=== PATIENT | male | born 1965 ===

== ENCOUNTER 2017-01-03 13:54 | Inpatient (IN) | payer OTHER, SELFPAY ==
[2017-01-03 14:00] VITALS: BMI 25.8
[2017-01-03] MEDS ORDERED: Alum-Mag Hydrox-Simethicone Susp (30 mL) PO STA (14:13)
[2017-01-03] MEDS ORDERED: Sodium Chloride 0.9% 1,000 ML IV STA (14:13)
[2017-01-03] MEDS ORDERED: Famotidine 20mg/50ml 20 MG/50 ML BAG IVPB STA (14:14)
--- NOTE | 2017-01-03 14:20 | ED PDOC ---
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 Patient states that pain began gradually, feels like a pressure sensation and radiates to straight back. Patient states that he has been vomiting throughout the morning. patient drinks on a daily basis about 8 shots. Today patient drank a few shots to help with the pain. Patient also took Aspirin 81 mg but vomited it up. Patient states pain is associated with difficulty catching his breath. Patient also complains of chronic lower extremity and low back pain. Patient denies having any hematemesis or hematochezia. Last drink was this morning. (Latasha Cardona) Past Medical History - Provider Review Nursing Documentation Reviewed: Yes - Travel History Have you recently traveled outside [place] w/in the past 3 mons?: No - Infectious Disease Hx of Infectious Diseases: None - Tetanus Immunization Tetanus Immunization: Unknown - Cardiac Hx Cardiac Disorders: No - Pulmonary Hx Respiratory Disorders: No - Neurological Hx Neurological Disorder: No - HEENT Hx HEENT Disorder: Yes Hx Cataracts: Yes (bilateral sx) - Renal Hx Renal Disorder: No - Endocrine/Metabolic Hx Endocrine Disorders: Yes Hx Diabetes Mellitus Type 2: Yes (niddm) - Hematological/Oncological Hx Blood Disorders: No - Integumentary Hx Dermatological Disorder: No - Musculoskeletal/Rheumatological Hx Musculoskeletal Disorders: No - Gastrointestinal Hx Gastrointestinal Disorders: No - Genitourinary/Gynecological Hx Genitourinary Disorders: Yes - Psychiatric Hx Psychophysiologic Disorder: No Hx Substance Use: No - Past Surgical History Past Surgical History: No Previous - Surgical History Hx Appendectomy: No Hx Cholecystectomy: No - Anesthesia Hx Anesthesia: No - Suicidal Assessment Feels Threatened In Home Enviroment: No <Latasha Cardona - Last Filed: 01/03/17 16:16> Family/Social History - Physician Review Nursing Documentation Reviewed: Yes Family/Social History: Unknown Family HX. denies: CAD/[place] Smoking Status: Never Smoked Hx Alcohol Use: Yes Frequency of alcohol use: Daily Hx Substance Use: No Hx Substance Use Treatment: No <Latasha Cardona - Last Filed: 01/03/17 16:16> Allergies/Home Meds <Latasha Cardona - Last Filed: 01/03/17 16:16> <LynettenathanMadyson Erendira - Last Filed: 01/03/17 17:43> Allergies/Adverse Reactions: Allergies No Known Allergies Allergy (Verified 01/03/17 14:00) Review of Systems - Review of Systems Constitutional: Normal. absent: Fatigue, Fevers Eyes: Normal. absent: Vision Changes, Photophobia ENT: Normal. absent: Sore Throat, Rhinorrhea, Sinus Congestion Respiratory: Normal. absent: SOB, Cough, Sputum, Wheezing Cardiovascular: Chest Pain. absent: Normal, Palpitations, Edema, Calf Pain, Syncope Gastrointestinal: Abdominal Pain, Nausea, Vomiting. absent: Normal, Constipation, Diarrhea, Hematochezia, Hematemesis Genitourinary Male: Normal. absent: Dysuria, Frequency Musculoskeletal: Back Pain (chronic). absent: Arthralgias Skin: Normal. absent: Rash, Pruritis, Skin Lesions, Laceration Neurological: Normal. absent: Headache, Dizziness Endocrine: Normal. absent: Diaphoresis, Polyuria Hemo/Lymphatic: Normal. absent: Adenopathy, Easy Bleeding Psychiatric: Normal. absent: Anxiety, Depression <Latasha Cardona - Last Filed: 01/03/17 16:16> Physical Exam Vital Signs Reviewed: Yes Temperature: Afebrile Blood Pressure: Normal Pulse: Tachycardic Respiratory Rate: Normal Appearance: Positive for: Uncomfortable Pain Distress: Moderate Mental Status: Positive for: Alert and Oriented X 3 - Systems Exam Head: Present: Atraumatic, Normocephalic Extroacular Muscles: Present: EOMI Mouth: Present: Moist Mucous Membranes Neck: Present: Normal Range of Motion Respiratory/Chest: Present: Clear to Auscultation, Good Air Exchange. No: Respiratory Distress, Accessory Muscle Use, Wheezes, Rales, Rhonchi Cardiovascular: Present: Normal S1, S2, Tachycardic. No: Murmurs, Irregular Rhythm, Rub, Gallop, Muffled Abdomen: Present: Tenderness, Normal Bowel Sounds, Guarding. No: Distention, Peritoneal Signs, Rebound Lower Extremity: Present: Normal ROM, Neurovascularly Intact. No: Normal Inspection, Edema, CALF TENDERNESS, NORMAL PULSES, Vidya's Sign, Tenderness Neurological: Present: GCS=15, Speech Normal. No: CN II-XII Intact Skin: Present: Warm, Dry, Normal Color. No: Rashes Psychiatric: Present: Alert, Oriented x 3, Normal Insight, Normal Concentration , Other (no tremors noted ). No: Anxious, Agitated <Karim,Latasha - Last Filed: 01/03/17 16:16> Medical Decision Making - Lab Interpretations I have reviewed the lab results: Yes - RAD Interpretation Yard Pilot: ED Physician - EKG Interpretation Type: 12 lead EKG <Amn Brendana - Last Filed: 01/03/17 16:16> <Madyson Carrasco - Last Filed: 01/03/17 17:43> ED Course and Treatment: 01/03/17 14:25 51 year old male presents for left sided chest pain radiating to back. Blood sugar finger stick is 153. Patient is noted to have normal Stress test in 2013 Will check CBC, CMP, lipase, cardiac enzymes, EKG, CXR, Mg, phos, UDS and serum alcohol level Patient will be given pepcid, zofran, NS 1 L bolus, Maalox (Karim,Latasha) 01/03/17 17:41 Patient seen by resident and then evaluated by me. He complained of chest pain associated with abdominal pain and vomiting. Dry mucus membranes and tachycardic on arrival which resolved after IVF. Labs significant for elevated liver function and mildly elevated inr. Tylenol level negative. Hepatitis panel sent out. Trop x 1 negative. Due to cardiac risk factors, with transfer to tele observation for chest pain, liver failure (etoh vs viral hepatitis) and alcohol abuse. Spoke to Dr. Steven who is aware of patient. (Madyson Carrasco) - Lab Interpretations Narrative Lab Interpretation (Text): 01/03/17 15:17 CBC is grossly normal CMP: T bili is 2.2 ALT is 1160 AST 1591 Alk is 137 LDH is 3122 Serum ETOH level is 228 01/03/17 16:04 (Karim,Latasha) Lab Results: 01/03/17 14:15 01/03/17 14:15 Lab Results 01/03/17 16:00: Urine Opiates Screen Negative, Urine Methadone Screen Negative, Ur Barbiturates Screen Negative, Ur Phencyclidine Scrn Negative, Ur Amphetamines Screen Negative, U Benzodiazepines Scrn Negative, U Oth Cocaine Metabols Negative, U Cannabinoids Screen Negative 01/03/17 14:21: POC Glucose (mg/dL) 153 H 01/03/17 14:15: Direct Bilirubin 0.9 H 01/03/17 14:15: Acetaminophen < 10.0 L 01/03/17 14:15: PT 16.1 H, INR 1.49 H, APTT 34.4 H 01/03/17 14:15: Alcohol, Quantitative 228 H 01/03/17 14:15: Sodium 133, Potassium 3.6, Chloride 93 L, Carbon Dioxide 25, Anion Gap 19, BUN 14, Creatinine 0.6, Est GFR ( Amer) > 60, Est GFR (Non- Af Amer) > 60, Random Glucose 159 H, Calcium 8.4, Phosphorus 2.3 L, Magnesium 1.3 L, Total Bilirubin 2.2 H, AST 1591 H, ALT 1160 H, Alkaline Phosphatase 137 H , Lactate Dehydrogenase 3122 H, Total Creatine Kinase 379 H, CK-MB (CK-2) 5.3 H , CK-MB (CK-2) % 1.4 L, Troponin I < 0.01, Total Protein 7.9, Albumin 4.3, Globulin 3.5, Albumin/Globulin Ratio 1.2, Lipase 141 01/03/17 14:15: WBC 4.6 D, RBC 4.83, Hgb 15.1, Hct 42.2, MCV 87.4, MCH 31.3, MCHC 35.8, RDW 14.8 H, Plt Count 305, MPV 9.5 - RAD Interpretation Narrative RAD Interpretations (Text): 01/03/17 16:17 CXR: interval change consisting of mild central pulmonary venous congestion, 6 mm left lateral mid lung zone stable from appearance since 2014 (Amn Brendana) Radiology Orders: 01/03/17 15:07 CHEST PORTABLE [RAD] Stat 01/03/17 15:22 ABD & PELVIS IV CONTRAST ONLY [CT] Stat - EKG Interpretation EKG Interpretation (Text): 01/03/17 14:31 NSR with HR of 108. No ST changes, normal intervals, normal axis. (Latasha Cardona ) - Medication Orders Current Medication Orders: Discontinued Medications Al Hydrox/Mg Hydrox/Simethicone (Maalox Plus 30 Ml) 30 ml PO STAT STA Stop: 01/03/17 14:14 Last Admin: 01/03/17 15:00 Dose: 30 ml Aspirin (Ecotrin) 243 mg PO STAT STA Stop: 01/03/17 15:28 Sodium Chloride (Sodium Chloride 0.9%) 1,000 mls @ 999 mls/hr IV .Q1H1M STA Stop: 01/03/17 15:13 Last Admin: 01/03/17 14:28 Dose: 999 mls/hr Famotidine (Pepcid 20mg/50ml Premix) 20 mg in 50 mls @ 100 mls/hr IVPB STAT STA Stop: 01/03/17 14:43 Last Admin: 01/03/17 14:29 Dose: 100 mls/hr Iohexol (Omnipaque 350 100 Ml) Confirm Administered Dose 350 mg .ROUTE .STK-MED ONE Stop: 01/03/17 15:43 Ondansetron HCl (Zofran Inj) 4 mg IVP STAT STA Stop: 01/03/17 14:12 Last Admin: 01/03/17 14:29 Dose: 4 mg Disposition/Present on Arrival - Present on Arrival Any Indicators Present on Arrival: No History of DVT/PE: No History of Uncontrolled Diabetes: No Urinary Catheter: No History of Decub. Ulcer: No History Surgical Site Infection Following: None - Disposition Have Diagnosis and Disposition been Completed?: Yes Patient Plan: Admission <BrendanLatasha - Last Filed: 01/03/17 16:16> - Present on Arrival Any Indicators Present on Arrival: No - Disposition Have Diagnosis and Disposition been Completed?: Yes Disposition Time: 17:43 Patient Plan: Admission <Madyson Carrasco - Last Filed: 01/03/17 17:43> - Disposition Diagnosis: Abdominal pain, Acute hepatic failure Disposition: HOSPITALIZED Patient Problems: Current Active Problems Problem Status Onset Abdominal pain Acute Acute hepatic failure Acute Condition: FAIR
[2017-01-03 14:47] LABS: HEMOGLOBIN 15.1 g/dL (14.0-18.0); MEAN CELL VOLUME 87.4 fl (80.0-105.0); MEAN CORPUSCULAR HEMOGLOBIN 31.3 pg (25.0-35.0); MEAN CORPUSCULAR HGB CONC 35.8 g/dl (31.0-37.0); MEAN PLATELET VOLUME 9.5 fl (7.0-11.0); RBC 4.83 10^6/uL (3.5-6.1); RED CELL DISTRIBUTION WIDTH 14.8 % (11.5-14.5); WHITE BLOOD COUNT 4.6 10^3/ul (4.5-11.0)
[2017-01-03 14:58] LABS: ALB/GLOB RATIO 1.2 (1.1-1.8); ALBUMIN 4.3 g/dL (3.0-4.8); BLOOD UREA NITROGEN 14 mg/dL (7-21); CALCIUM 8.4 mg/dL (8.4-10.5); GFR AFRICAN-AMERICAN > 60; GFR NON-AFRICAN AMERICAN > 60; LIPASE 141 U/L (23-300); MAGNESIUM 1.3 mg/dL (1.7-2.2)
[2017-01-03 15:08] LABS: ALT/SGPT 1160 U/L (7-56)
[2017-01-03 15:09] LABS: TROPONIN I < 0.01 ng/mL
[2017-01-03 15:15] LABS: CK MB% 1.4 % (2.5-3.0); CK-MB 5.3 ng/mL (0.0-3.6)
[2017-01-03] MEDS ORDERED: Aspirin 325 mg EC Tablets PO STA ×2 (15:20→15:27)
[2017-01-03 15:25] LABS: AST/SGOT 1591 U/L (15-59)
--- NOTE | 2017-01-03 15:35 | RAD ---
HISTORY: chest pain COMPARISON: 08/03/2014 FINDINGS: LUNGS: No consolidation. The central and infrahilar bronchovascular markings are slightly more prominent on this volume study. Mild central pulmonary venous congestion is believe most likely. No talia consolidation noted A 6 mm nodule projects over the lateral left mid lung zone bordering the left 6 superior rib cortex. This is unchanged since 2014 . PLEURA: No significant pleural effusion identified, no pneumothorax apparent. CARDIOVASCULAR: Probable top-normal OSSEOUS STRUCTURES: No significant abnormalities. VISUALIZED UPPER ABDOMEN: Normal. OTHER FINDINGS: None. IMPRESSION: Interval change consisting of - Mild central pulmonary venous congestion. Top-normal heart size 6 mm nodule left lateral mid lung zone -stable in appearance since 2014
[2017-01-03] MEDS ORDERED: Iohexol 350 MG/100 ML VIAL ONE (15:42)
[2017-01-03 16:30] LABS: INR 1.49 (0.93-1.08); PARTIAL THROMBOPLASTIN TIME 34.4 Seconds (23.7-30.8); PROTHROMBIN TIME 16.1 Seconds (9.9-11.8)
[2017-01-03 16:38] LABS: BARBITURATES, UR NEGATIVE (NEGATIVE); BENZODIAZEPINES, UR NEGATIVE (NEGATIVE); OPIATES, UR NEGATIVE (NEGATIVE); PHENCYCLIDINE, UR NEGATIVE (NEGATIVE)
--- NOTE | 2017-01-03 17:23 | CT ---
PROCEDURE: CT Abdomen and Pelvis with contrast HISTORY: Generalized abdominal pain, chest pain. COMPARISON: 01/30/2015. TECHNIQUE: Contrast dose: 100 cc Omnipaque 350. Radiation dose: Total exam DLP = 445.61 mGy-cm. This CT exam was performed using one or more of the following dose reduction techniques: Automated exposure control, adjustment of the mA and/or kV according to patient size, and/or use of iterative reconstruction technique. FINDINGS: LOWER THORAX: Unremarkable. LIVER: Unremarkable. No gross lesion or ductal dilatation. GALLBLADDER AND BILE DUCTS: Unremarkable. PANCREAS: Unremarkable. No gross lesion or ductal dilatation. SPLEEN: Unremarkable. ADRENALS: Unremarkable. No mass. KIDNEYS AND URETERS: Unremarkable. No hydronephrosis. No solid mass. VASCULATURE: Unremarkable. No aortic aneurysm. BOWEL: Mild thickening of the wall of the colon. The findings likely reflect underfilling. However colitis should also be considered in the appropriate clinical setting. There is evidence of diverticulosis without diverticulitis. APPENDIX: Normal appendix. PERITONEUM: Unremarkable. No free fluid. No free air. LYMPH NODES: Unremarkable. No enlarged lymph nodes. BLADDER: Unremarkable. REPRODUCTIVE: Unremarkable. BONES: No acute fracture. OTHER FINDINGS: None. IMPRESSION: Thickening of the wall of the entire colon. The colon is not distended and oral contrast was not administered. Diffuse colitis however could also assume this appearance.
--- NOTE | 2017-01-03 18:28 | CARD ---
APPROVED REPORT EKG Measurement Heart [id number] <Conclusion> Sinus tachycardia Possible Left atrial enlargement Borderline ECG
[2017-01-03] MEDS ORDERED: Potassium Phosphate 15 MMOLE in Sodium Chloride 0.9% 250 ML IVPB ONE (21:34)
[2017-01-03] MEDS ORDERED: Thiamine 100 mg/ml Inj IV ONE (21:38)
[2017-01-03] MEDS: Magnesium Sulfate 2 GM in Sodium Chloride 0.9% 100 ML IVPB SCH (22:05)
--- NOTE | 2017-01-03 22:20 | CP.PCM.HP ---
<rCistian Winters - Last Filed: 01/04/17 05:41> History of Present Illness - History of Present Illness History of Present Illness: IM H&P for Hospitalist service CC: worsening nausea/emesis, and left-sided chest pain HPI: This is a 51 yo M with PMH of HTN, DM, medication non-compliance , and chronic alcohol abuse who presented to the ED with complaint of increased emesis and abd/chest pain. Patient is Pashto-speaking only, so translation provided by staff at bedside. Patient is a poor historian; his story changes frequently and he is frequently unable or unwilling to provide further history. He reports that he presented today due to increased abdominal pain and emesis , up to 6 times today. He admits to regular alcohol use, but the daily amount that he admits to varies, anywhere from 6 to > 8 drinks per day, shots of unspecified liquor. Patient reports drink this amount since emigrating to the [place], for ~17 yrs. He reports daily emesis for the last 3 days prior to presentation, but reports that it is a common occurrence for him. He denies bilious or bloody emesis during these most recent episodes, but admits that he has had hematemesis with bouts of emesis while drinking previously. Abdominal pain is described as diffuse, most prominent at epigastric area. Patient denies tobacco or illicits/IVDA use. Admits to sexual activity, frequently with prostitutes, claims to be using protection, denies any hx of STDs. Poor appetite, vomiting up food and baby aspirin on day of admission, reports last PO food intake 4 days prior, no BM in the last 3 days. Admits to intermittent chest pain/pressure, which was one of his main complaints in the ED, but denies chest pain or pressure at time of exam by admitting team. Denies shortness of breath, dyspnea, cough, fever/chills, dry heaves, worsening abdominal/flank pain with urination, dysuria/hematuria, diarrhea, focal weakness, LE edema, or LE paresthesias. All other ROS negative in 12-point systems review. Of note, patient reports that he usually goes to [facility] to be seen, but came to [facility] because he lives closer to here and did not think he could make it to [facility] due to his pain. Will need to obtain a copy of his records from [facility] He also reports that he was previously placed on medications for his DM and HTN (5 in total, including ASA, statin, Metformin, and insulin), but hasn't been on any in 2+ month due to running out of what he was prescribed and not following up with physicians as an outpatient. 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, claims to be using protection, denies any MSM, denies any hx STDs PMD: None Present on Admission - Present on Admission Any Indicators Present on Admission: No History of DVT/PE: No History of Uncontrolled Diabetes: No Decubitus Ulcer Present: No Review of Systems - Review of Systems All systems: reviewed and no additional remarkable complaints except (as per HPI ) Past Patient History - Infectious Disease Hx of Infectious Diseases: None - Tetanus Immunizations Tetanus Immunization: Unknown - Past Social History Smoking Status: Never Smoked - CARDIAC Hx Cardiac Disorders: Yes Hx Hypercholesterolemia: Yes Hx Hypertension: Yes - PULMONARY Hx Respiratory Disorders: No - NEUROLOGICAL Hx Neurological Disorder: No - HEENT Hx HEENT Problems: Yes Hx Cataracts: Yes (bilateral sx) - RENAL Hx Chronic Kidney Disease: No - ENDOCRINE/METABOLIC Hx Endocrine Disorders: Yes Hx Diabetes Mellitus Type 2: Yes (niddm) - HEMATOLOGICAL/ONCOLOGICAL Hx Blood Disorders: No - INTEGUMENTARY Hx Dermatological Problems: No - MUSCULOSKELETAL/RHEUMATOLOGICAL Hx Falls: Yes - GASTROINTESTINAL Hx Gastrointestinal Disorders: No - GENITOURINARY/GYNECOLOGICAL Hx Genitourinary Disorders: Yes Hx Prostate Problems: Yes - PSYCHIATRIC Hx Psychophysiologic Disorder: Yes (eoh abuse) Hx Substance Use: No - SURGICAL HISTORY Hx Appendectomy: No Hx Cholecystectomy: No - ANESTHESIA Hx Anesthesia: No Meds Allergies/Adverse Reactions: Allergies Allergy/AdvReac Type Severity Reaction Status Date / Time No Known Allergies Allergy Verified 01/03/17 14:00 Physical Exam - Constitutional Appears: Non-toxic, No Acute Distress, Chronically Ill - Head Exam Head Exam: ATRAUMATIC, NORMAL INSPECTION, NORMOCEPHALIC - Eye Exam Eye Exam: EOMI, Normal appearance, PERRL. absent: Conjunctival injection, Nystagmus, Scleral icterus Pupil Exam: NORMAL ACCOMODATION, PERRL. absent: Fixed, Irregular, Unequal - ENT Exam ENT Exam: Mucous Membranes Dry. absent: Mucous Membranes Moist - Neck Exam Neck exam: Positive for: Full Rom. Negative for: Lymphadenopathy - Respiratory Exam Respiratory Exam: Clear to Auscultation Bilateral, NORMAL BREATHING PATTERN. absent: Accessory Muscle Use, Chest Wall Tenderness, Decreased Breath Sounds, Rales, Rhonchi, Wheezes - Cardiovascular Exam Cardiovascular Exam: REGULAR RHYTHM, RRR, +S1, +S2. absent: Bradycardia, Tachycardia, Clicks, Irregular Rhythm, JVD, +S4 - GI/Abdominal Exam GI & Abdominal Exam: Hyperactive Bowel Sounds (with frequent borborygmi), Soft, Tenderness (predominantly epigastric, but diffusely present). absent: Diminished Bowel Sounds, Distended, Firm, Hypoactive Bowel Sounds, Normal Bowel Sounds, Organomegaly (palpable liver, but not grossly enlarged), Rebound, Rigid - Extremities Exam Extremities exam: Positive for: normal inspection, pedal pulses present (+1 dorsalis pedis bilaterally). Negative for: calf tenderness, joint swelling, pedal edema, tenderness - Back Exam Back exam: absent: CVA tenderness (L), CVA tenderness (R) - Neurological Exam Additional comments: awake and alert, following commands appropriately, moving all extremities spontaneously, no gross tremulousness, no asterixis noted - Psychiatric Exam Additional comments: Flat affect/mood, extremely poor insight into condition and issues related to alcohol intake - Skin Skin Exam: Dry, Intact, Normal Color, Warm Results - Vital Signs Recent Vital Signs: Last Vital Signs Temp 98.0 F 01/03/17 14:11 Pulse 76 01/03/17 20:39 Resp 20 01/03/17 20:39 BP 112/77 01/03/17 18:11 Pulse Ox 99 01/03/17 18:11 - Labs Result Diagrams: 01/04/17 04:10 01/03/17 14:15 Assessment & Plan - Assessment and Plan (Free Text) Assessment: This is a 51 yo M with PMH of HTN, DM, medication non-compliance, and chronic alcohol abuse who presented to the ED with complaint of increased emesis and abd/chest pain. He is being worked up for acute hepatic failure, likely 2/2 alcohol abuse. Plan: 1) Abdominal pain with nausea and emesis -2/2 alcohol abuse vs chronic pancreatitis vs hepatic failure vs enteritis, may be multifactorial -EtOH level in ED 228 -Lipase 141, but given chronic alcohol abuse and chronic abdominal pain with emesis, more likely chronic pancreatitis picture, which can present with nml range lipase -AST 1591, ALT 1160, Alk phos 137, Tbili 2.2, Dbili 0.9, PT 16.1, PTT 34.4, INR 1.49; prior charting for this patient notable for AST/ALT all < 100, Tbili < 1.0 , INRmax 1.05; concerning for acute renal failure, likely 2/2 alcohol abuse, need to rule out 2/2 viral etiology given sexual hx -Hepatitis panel, HIV, RPR, UTox ordered -Hypertriglyceridemia at 509, likely 2/2 alcohol abuse -GI consulted, appreciate all recs -NS with 20 meq KCl at 150cc/hr, NPO overnight for bowel rest, can trial on clears in AM -CT abd/pelvis obtained, notable for Thickening of the wall of the entire colon , not distended, Diffuse colitis could also assume this appearance. -repleting electrolytes; Mag 1.3, ordered 2g IVPB q3 x3 doses; K 3.6, 20 mEq KCl per bag NS ordered; Phos 2.3, KPhos x1 ordered; f/u repeats on AM labs -Protonix 40mg IVP q12, Zofran 4mg q6 IVP prn 2) Acute hepatic failure -likely 2/2 alcohol abuse, ruling out viral causes, rule out autoimmune -AST 1591, ALT 1160, Alk phos 137, Tbili 2.2, Dbili 0.9, PT 16.1, PTT 34.4, INR 1.49; prior charting for this patient notable for AST/ALT all < 100, Tbili < 1.0 , INRmax 1.05 -Hepatitis panel pending, UTox pending, Smooth muscle antibody pending -Maddrey Score: 22, would not benefit from steroid therapy -GI consulted, appreciate all recs -avoid hepatotoxic drugs where feasible -Ammonia level ordered; currently mentating appropriately, so unlikely uremic at this time; if becomes obtunded/encephalopathic, consider 3) EtOH abuse -EtOH lvl in ED 228 -high risk for withdrawal -CIWA protocol ordered -Ativan IV 1mg q6 romy and 2mg q2 prn ordered -IV Folic acid 1mg and Thiamine 100mg IV x1 each; PO folic acid and thiamine daily ordered 4) Chest pain -initial compliant in the ED was chest pain, denies chest pain at time of exam by admitting team -initial trop negative, EKG sinus rhythm with QTc prolongation of 480's -given ASA 243 x1 in ED -continue to monitor, if chest pain symptoms recur or develops arrhythmia, can consider consulting Cardio -on tele floor, continue tele monitoring 5) HTN -reports previous on 1-2 antiHTN meds, but no recollection of what meds; off for > 2 months -currently Hemodynamically stable, will hold off on antiHTN medications as this time 6) DM -reports previously on insulin and metformin, doses unclear, not taking for > 2 months -Blood Glucose 150's on admission -NPO overnight, will start on clear liquids mod consistent carb -holding insulin for now, if becomes hyperglycemic > 200, can consider starting on sliding scale Dispo: Telemetry for acute hepatic failure, pending GI eval and input, on CIWA protocol for likely pending EtOH withdrawal FEN: NPO overnight, clears in AM, NS 150 cc/hr + 20 mEq KCl Access: Peripheral IV Consults: GI Ppx: Protonix covers for GI, SCDs for DVT (avoid AC in setting of acute hepatic failure with elevated INR) Pt seen and examined with attending, Dr. Krause. Decision To Admit - Pt Status Changed To: Hospital Disposition Of: Inpatient Admission - Admit Certification Admit to Inpatient:: After my assessment, the patient will require hospitalization for at least two midnights. This is because of the severity of symptoms shown, intensity of services needed, and/or the medical risk in this patient being treated as an outpatient. - . Bed Request Type: Telemetry <Salazar Krause - Last Filed: 01/04/17 23:13> Results - Vital Signs Recent Vital Signs: Last Vital Signs Temp 98.7 F 01/04/17 17:47 Pulse 79 01/04/17 17:47 Resp 18 01/04/17 17:47 BP 117/79 01/04/17 17:47 Pulse Ox 97 01/04/17 06:00 - Labs Result Diagrams: 01/04/17 04:10 01/04/17 04:10 Labs: Laboratory Results - last 24 hr 01/03/17 01/04/17 01/04/17 17:55 04:10 04:10 WBC 4.1 L RBC 4.36 Hgb 13.5 L Hct 38.6 L MCV 88.5 MCH 31.0 MCHC 35.0 RDW 15.0 H Plt Count 244 MPV 9.4 Gran % 83.9 H Lymph % (Auto) 11.3 L [place] % (Auto) 3.4 Eos % (Auto) 1.2 L Baso % (Auto) 0.2 Gran # 3.41 Lymph # 0.5 L [place] # 0.1 Eos # 0.1 Baso # 0.01 PT 12.8 H INR 1.19 H APTT 35.0 H Sodium Potassium Chloride Carbon Dioxide Anion Gap BUN Creatinine Est GFR ( Amer) Est GFR (Non-Af Amer) POC Glucose (mg/dL) Random Glucose Hemoglobin A1c Lactic Acid Calcium Phosphorus Magnesium Total Bilirubin AST ALT Alkaline Phosphatase Ammonia Troponin I Total Protein Albumin Globulin Albumin/Globulin Ratio Triglycerides Cholesterol LDL Cholesterol Direct HDL Cholesterol Vitamin B12 25-OH Vitamin D Total RPR Hepatitis A IgM Ab Negative Hep Bs Antigen Negative Hep B Core IgM Ab Negative Hepatitis C Antibody Negative 01/04/17 01/04/17 01/04/17 04:10 04:10 04:10 WBC RBC Hgb Hct MCV MCH MCHC RDW Plt Count MPV Gran % Lymph % (Auto) [place] % (Auto) Eos % (Auto) Baso % (Auto) Gran # Lymph # [place] # Eos # Baso # PT INR APTT Sodium 133 Potassium 3.6 Chloride 99 Carbon Dioxide 25 Anion Gap 13 BUN 7 Creatinine 0.6 Est GFR ( Amer) > 60 Est GFR (Non-Af Amer) > 60 POC Glucose (mg/dL) Random Glucose 150 H Hemoglobin A1c 7.7 H Lactic Acid Calcium 7.3 L Phosphorus 3.0 Magnesium 2.2 Total Bilirubin 1.6 H AST 1259 H ALT 949 H Alkaline Phosphatase 131 Ammonia Troponin I < 0.01 Total Protein 6.8 Albumin 3.5 Globulin 3.3 Albumin/Globulin Ratio 1.1 Triglycerides 509 H Cholesterol 170 LDL Cholesterol Direct 34 HDL Cholesterol 59 Vitamin B12 971 H 25-OH Vitamin D Total < 12.8 L RPR Hepatitis A IgM Ab Hep Bs Antigen Hep B Core IgM Ab Hepatitis C Antibody 01/04/17 01/04/17 01/04/17 04:10 04:10 07:26 WBC RBC Hgb Hct MCV MCH MCHC RDW Plt Count MPV Gran % Lymph % (Auto) [place] % (Auto) Eos % (Auto) Baso % (Auto) Gran # Lymph # [place] # Eos # Baso # PT INR APTT Sodium Potassium Chloride Carbon Dioxide Anion Gap BUN Creatinine Est GFR ( Amer) Est GFR (Non-Af Amer) POC Glucose (mg/dL) 123 H Random Glucose Hemoglobin A1c Lactic Acid 1.0 Calcium Phosphorus Magnesium Total Bilirubin AST ALT Alkaline Phosphatase Ammonia Troponin I Total Protein Albumin Globulin Albumin/Globulin Ratio Triglycerides Cholesterol LDL Cholesterol Direct HDL Cholesterol Vitamin B12 25-OH Vitamin D Total RPR Nonreactive Hepatitis A IgM Ab Hep Bs Antigen Hep B Core IgM Ab Hepatitis C Antibody 01/04/17 01/04/17 01/04/17 08:20 12:01 16:00 WBC RBC Hgb Hct MCV MCH MCHC RDW Plt Count MPV Gran % Lymph % (Auto) [place] % (Auto) Eos % (Auto) Baso % (Auto) Gran # Lymph # [place] # Eos # Baso # PT INR APTT Sodium Potassium Chloride Carbon Dioxide Anion Gap BUN Creatinine Est GFR ( Amer) Est GFR (Non-Af Amer) POC Glucose (mg/dL) 212 H 196 H Random Glucose Hemoglobin A1c Lactic Acid Calcium Phosphorus Magnesium Total Bilirubin AST ALT Alkaline Phosphatase Ammonia 35 H Troponin I Total Protein Albumin Globulin Albumin/Globulin Ratio Triglycerides Cholesterol LDL Cholesterol Direct HDL Cholesterol Vitamin B12 25-OH Vitamin D Total RPR Hepatitis A IgM Ab Hep Bs Antigen Hep B Core IgM Ab Hepatitis C Antibody 01/04/17 21:43 WBC RBC Hgb Hct MCV MCH MCHC RDW Plt Count MPV Gran % Lymph % (Auto) [place] % (Auto) Eos % (Auto) Baso % (Auto) Gran # Lymph # [place] # Eos # Baso # PT INR APTT Sodium Potassium Chloride Carbon Dioxide Anion Gap BUN Creatinine Est GFR ( Amer) Est GFR (Non-Af Amer) POC Glucose (mg/dL) 208 H Random Glucose Hemoglobin A1c Lactic Acid Calcium Phosphorus Magnesium Total Bilirubin AST ALT Alkaline Phosphatase Ammonia Troponin I Total Protein Albumin Globulin Albumin/Globulin Ratio Triglycerides Cholesterol LDL Cholesterol Direct HDL Cholesterol Vitamin B12 25-OH Vitamin D Total RPR Hepatitis A IgM Ab Hep Bs Antigen Hep B Core IgM Ab Hepatitis C Antibody Attending/Attestation - Attestation I have personally seen and examined this patient.: Yes I have fully participated in the care of the patient.: Yes I have reviewed all pertinent clinical information: Yes Notes (Text): 01/04/17 23:12 See progress note same day in the record by me.
[2017-01-04] MEDS: Magnesium Sulfate 2 GM in Sodium Chloride 0.9% 100 ML IVPB SCH ×2 (01:14→04:18)
[2017-01-04 05:11] LABS: BASO # 0.01 K/mm3 (0.0-2.0); BASO % 0.2 % (0.0-3.0); EOS # 0.1 (0.0-0.7); EOS % 1.2 % (1.5-5.0); GRAN # 3.41 (1.4-6.5); GRAN % 83.9 % (50.0-68.0); HEMOGLOBIN 13.5 g/dL (14.0-18.0); LYMPH # 0.5 (1.2-3.4); LYMPH % 11.3 % (22.0-35.0); MEAN CELL VOLUME 88.5 fl (80.0-105.0); MEAN PLATELET VOLUME 9.4 fl (7.0-11.0); MONO # 0.1 (0.1-0.6); MONO % 3.4 % (1.0-6.0); PLATELET COUNT 244 10^3/uL (120.0-450.0); RBC 4.36 10^6/uL (3.5-6.1); WHITE BLOOD COUNT 4.1 10^3/ul (4.5-11.0)
[2017-01-04 05:17] LABS: INR 1.19 (0.93-1.08); PROTHROMBIN TIME 12.8 Seconds (9.9-11.8)
[2017-01-04 05:39] LABS: ALB/GLOB RATIO 1.1 (1.1-1.8); ALBUMIN 3.5 g/dL (3.0-4.8); ALT/SGPT 949 U/L (7-56); BLOOD UREA NITROGEN 7 mg/dL (7-21); CALCIUM 7.3 mg/dL (8.4-10.5); GFR AFRICAN-AMERICAN > 60; GFR NON-AFRICAN AMERICAN > 60; HDL CHOLESTEROL 59 mg/dL (29-60); LDL CHOLESTEROL 34 mg/dL (0-129); MAGNESIUM 2.2 mg/dL (1.7-2.2)
[2017-01-04 05:40] LABS: TROPONIN I < 0.01 ng/mL
[2017-01-04 06:50] LABS: AST/SGOT 1259 U/L (15-59)
--- NOTE | 2017-01-04 07:12 | CP.PCM.PN ---
Subjective - Date & Time of Evaluation Date of Evaluation: 01/03/17 Time of Evaluation: 21:00 - Subjective Subjective: Assessment * Alcoholic gastritis and hepatitis, presented with recurrent vomiting * Risk of alcohol withdrawal * Dehydration * Possible malnutrition * h/o dm/htn, non compliant with meds for about 2 months, in past has been to [facility] Plan * Zofran, ivf, protonix, slowly advance diet, * DD for hepatic inflammation * GI evaluation if candidate for steroid/colchicine * Ativan prn and schedule, thiamine, FA, MVT, replace electrolytes * Counselled about alcohol cessation * See orders for detail. Objective - Vital Signs/Intake and Output Vital Signs (last 24 hours): Temp Pulse Resp BP Pulse Ox 98.7 F 90 20 123/64 95 01/04/17 00:01 01/04/17 00:01 01/04/17 00:01 01/04/17 00:01 01/04/17 00:01 Intake and Output: 01/04/17 01/04/17 06:59 18:59 Intake Total 250 Output Total 1 Balance 249 - Medications Medications: Current Medications Folic Acid (Folic Acid) 1 mg PO DAILY [facility] Potassium Chloride 20 meq/ (Sodium Chloride) 1,010 mls @ 150 mls/hr IV .[id number] [facility] Last Admin: 01/03/17 23:37 Dose: 150 mls/hr Lorazepam (Ativan) 1 mg IVP Q6H WALLY PRN Reason: Protocol Last Admin: 01/04/17 04:19 Dose: 1 mg Lorazepam (Ativan) 2 mg IVP Q2H PRN; Protocol PRN Reason: Withdrawal sx Ondansetron HCl (Zofran Inj) 4 mg IVP Q6H PRN PRN Reason: Nausea/Vomiting Pantoprazole Sodium (Protonix Inj) 40 mg IVP Q12 [facility] Last Admin: 01/03/17 21:59 Dose: 40 mg Thiamine HCl (Vitamin B1 Tab) 100 mg PO DAILY [facility] - Labs Labs: 01/04/17 04:10 01/04/17 04:10 PT 12.8 Seconds (9.9-11.8) H 01/04/17 04:10 INR 1.19 (0.93-1.08) H 01/04/17 04:10 APTT 35.0 Seconds (23.7-30.8) H 01/04/17 04:10
--- NOTE | 2017-01-04 11:52 | CARD ---
APPROVED REPORT EKG Measurement Heart [id number] <Conclusion> Normal sinus rhythm Prolonged QT Abnormal ECG
--- NOTE | 2017-01-04 13:18 | CP.PCM.PN ---
<LYUDMILA DEWEY - Last Filed: 01/04/17 13:46> Subjective - Date & Time of Evaluation Date of Evaluation: 01/04/17 Time of Evaluation: 13:49 - Subjective Subjective: Medicine Progress Note: Pt was seen and examined at bedside. Pt denied any acute overnight events. Pt reports that abdominal pain is improved. Pt denies CP, SOB, n/v/d, chills, fever , and vertigo. Objective - Vital Signs/Intake and Output Vital Signs (last 24 hours): Temp Pulse Resp BP Pulse Ox 97.1 F L 83 20 122/71 97 01/04/17 06:00 01/04/17 06:00 01/04/17 06:00 01/04/17 06:00 01/04/17 06:00 Intake and Output: 01/04/17 01/04/17 06:59 18:59 Intake Total 250 1150 Output Total 1 Balance 249 1150 - Medications Medications: Current Medications Folic Acid (Folic Acid) 1 mg PO DAILY [facility] Last Admin: 01/04/17 10:00 Dose: 1 mg Potassium Chloride 20 meq/ (Sodium Chloride) 1,010 mls @ 150 mls/hr IV .Q6H44M ROMY Last Admin: 01/04/17 12:42 Dose: 150 mls/hr Lorazepam (Ativan) 1 mg IVP Q6H ROMY PRN Reason: Protocol Last Admin: 01/04/17 10:00 Dose: 1 mg Lorazepam (Ativan) 2 mg IVP Q2H PRN; Protocol PRN Reason: Withdrawal sx Ondansetron HCl (Zofran Inj) 4 mg IVP Q6H PRN PRN Reason: Nausea/Vomiting Pantoprazole Sodium (Protonix Inj) 40 mg IVP Q12 ROMY Last Admin: 01/04/17 10:00 Dose: 40 mg Thiamine HCl (Vitamin B1 Tab) 100 mg PO DAILY ROMY Last Admin: 01/04/17 10:00 Dose: 100 mg - Labs Labs: 01/04/17 04:10 01/04/17 04:10 PT 12.8 Seconds (9.9-11.8) H 01/04/17 04:10 INR 1.19 (0.93-1.08) H 01/04/17 04:10 APTT 35.0 Seconds (23.7-30.8) H 01/04/17 04:10 - Constitutional Appears: No Acute Distress - Head Exam Head Exam: ATRAUMATIC, NORMOCEPHALIC - Eye Exam Eye Exam: EOMI, PERRL - ENT Exam ENT Exam: Mucous Membranes Moist - Neck Exam Neck Exam: Full ROM. absent: Lymphadenopathy, Tenderness, Thyromegaly - Respiratory Exam Respiratory Exam: Clear to Ausculation Bilateral. absent: Rales, Rhonchi, Wheezes - Cardiovascular Exam Cardiovascular Exam: RRR. absent: Gallop, Rubs, Murmur - GI/Abdominal Exam GI & Abdominal Exam: Soft, Tenderness (epigastric and RUQ). absent: Distended, Guarding, Rebound - Extremities Exam Extremities Exam: Normal Inspection - Back Exam Back Exam: NORMAL INSPECTION - Neurological Exam Neurological Exam: Alert, Awake - Psychiatric Exam Psychiatric exam: Normal Affect, Normal Mood - Skin Skin Exam: Dry, Intact, Normal Color, Warm Assessment and Plan - Assessment and Plan (Free Text) Assessment: 51 yo M with PMH of HTN, DM, medication non-compliance, and chronic alcohol abuse who presents wt complaint of emesis and abd/chest pain. He is being worked up for acute hepatic failure, likely 2/2 alcohol abuse. Plan: 1) Abdominal pain with nausea and emesis - 2/2 alcohol abuse vs chronic pancreatitis vs hepatic failure vs enteritis, may be multifactorial - EtOH level in ED 228 - Lipase 141, but given chronic alcohol abuse and chronic abdominal pain with emesis, more likely chronic pancreatitis - Liver enzymes concerning for acute renal failure, likely 2/2 alcohol abuse, need to rule out 2/2 viral etiology given sexual hx - Hepatitis panel, HIV, RPR, UTox ordered - Hypertriglyceridemia at 509, likely 2/2 alcohol abuse - GI consulted, appreciate all recs - CT abd/pelvis obtained, notable for Thickening of the wall of the entire colon , not distended, Diffuse colitis could also assume this appearance. - Monitor electrolytes, replete as needed - Protonix, Zofran 2) Acute hepatic failure - Likely 2/2 alcohol abuse, ruling out viral causes, rule out autoimmune - AST/ALT and Tbili down trending - Urine toxicology negative, Tylenol level <10 - Hepatitis panel pending, Smooth muscle antibody pending - Maddrey Score: 22, would not benefit from steroid therapy - GI consulted, appreciate all recs - avoid hepatotoxic drugs where feasible - F/u ammonia 3) EtOH abuse - Educated pt on risks of EtOH consumption and advised cessation - EtOH lvl in ED 228 - high risk for withdrawal - CIWA protocol ordered - Ativan IV 1mg q6 romy and 2mg q2 prn ordered - IV Folic acid 1mg and Thiamine 100mg IV x1 each; PO folic acid and thiamine daily ordered 4) Chest pain - initial complaint in the ED was chest pain, denies chest pain at time of exam by admitting team - Serial troponins negative - EKG sinus rhythm with QTc prolongation of 480's - On tele floor, continue tele monitoring 5) HTN - Non-compliant with medications - currently Hemodynamically stable 6) DM - Non-compliant with medications - Blood Glucose 150's on admission - Clear liquids mod consistent carb - Hold insulin for now 7) GI/DVT PPx - Protonix - SCDs for DVT Pt seen and examined with attending, Dr. Steven. <Rod Steevn - Last Filed: 01/04/17 14:18> Objective - Vital Signs/Intake and Output Vital Signs (last 24 hours): Temp Pulse Resp BP Pulse Ox 97.1 F L 83 20 122/71 97 01/04/17 06:00 01/04/17 06:00 01/04/17 06:00 01/04/17 06:00 01/04/17 06:00 Intake and Output: 01/04/17 01/04/17 06:59 18:59 Intake Total 250 1150 Output Total 1 Balance 249 1150 - Medications Medications: Current Medications Folic Acid (Folic Acid) 1 mg PO DAILY ROMY Last Admin: 01/04/17 10:00 Dose: 1 mg Potassium Chloride 20 meq/ (Sodium Chloride) 1,010 mls @ 150 mls/hr IV .Q6H44M ROMY Last Admin: 01/04/17 12:42 Dose: 150 mls/hr Lorazepam (Ativan) 1 mg IVP Q6H ROMY PRN Reason: Protocol Last Admin: 01/04/17 10:00 Dose: 1 mg Lorazepam (Ativan) 2 mg IVP Q2H PRN; Protocol PRN Reason: Withdrawal sx Ondansetron HCl (Zofran Inj) 4 mg IVP Q6H PRN PRN Reason: Nausea/Vomiting Pantoprazole Sodium (Protonix Inj) 40 mg IVP Q12 ROMY Last Admin: 01/04/17 10:00 Dose: 40 mg Thiamine HCl (Vitamin B1 Tab) 100 mg PO DAILY ROMY Last Admin: 01/04/17 10:00 Dose: 100 mg - Labs Labs: 01/04/17 04:10 01/04/17 04:10 PT 12.8 Seconds (9.9-11.8) H 01/04/17 04:10 INR 1.19 (0.93-1.08) H 01/04/17 04:10 APTT 35.0 Seconds (23.7-30.8) H 01/04/17 04:10 Attending/Attestation - Attestation I have personally seen and examined this patient.: Yes I have fully participated in the care of the patient.: Yes I have reviewed all pertinent clinical information, including history, physical exam and plan: Yes Notes (Text): 01/04/17 14:09 attending note; Patient seen and examined with resident. Patient is a 51-year-old male with a past medical history of HTN, DM, medication non-compliance, and chronic alcohol abuse who presents with complaint of emesis and abdominal pain. acute liver filure; secondary to alcohol abuse. CT scan showed thickening of the wall of the colon possible underfilling versus colitis. GI evaluation requested. Patient denies any abdominal pain now. Tylenol level is negative. Urine drug screen is negative. Hepatitis profile ordered. LFT is improving slowly. coagulopathy is improving. Alcohol abuse; complete alcohol cessation is strongly advised. continue CIWA protocol. Continue multivitamin, thiamine, folic acid. Continue IV Ativan. GI prophylaxis with Protonix. Monitor closely. home economics extension worker evaluation requested to provide AA meeting/AA rehabilitation information. Upon discharge the patient will follow-up with [facility] [place] clinic.
[2017-01-04 16:39] LABS: HEPATITIS B SURFACE AG NEGATIVE (NEGATIVE)
[2017-01-04 16:45] LABS: HEPATITIS A IGM NEGATIVE (NEGATIVE); HEPATITIS B CORE AB NEGATIVE (NEGATIVE)
--- NOTE | 2017-01-04 16:46 | CON ---
DATE: 01/04/2017 REQUESTING PHYSICIAN: Dr. Costa. REASON FOR CONSULTATION I have been asked to see this 51-year-old male with history of hypertension, diabetes mellitus, and alcoholism, who comes to the hospital with nausea and vomiting and mid abdominal pain and chest pain. The patient states that he has 68 shots of hard liquor on a regular basis. He denies hematemesis or melena. He denies any fevers or chills. PAST MEDICAL HISTORY Notable for hypertension, diabetes mellitus, alcoholism, and medication noncompliance. SOCIAL HISTORY: He is an alcohol abuser. He quit cigarette smoking many years ago. He admits to sexual promiscuity. FAMILY HISTORY: Noncontributory. REVIEW OF SYSTEMS A 14-point review of systems is notable for nausea, vomiting, abdominal pain, and chest pain. PHYSICAL EXAMINATION: GENERAL: Middle-aged male lying in bed in no acute distress. VITAL SIGNS: Reveal temperature of 97.1, blood pressure 122/71, heart rate of 83. HEENT: Reveal sclerae to be white. Conjunctivae pink. NECK: Supple. CHEST: Reveal lungs to be clear. HEART: Exam reveals regular rate and rhythm. ABDOMEN: Soft, mild diffuse tenderness. No rebound or guarding. EXTREMITIES: Show no edema. LABORATORY DATA Reveal white blood cell count 4.1, hemoglobin 13.5, platelet count 244,000. Chemistries reveal normal electrolytes, blood sugar of 150, AST 1259, ALT 949, alkaline phosphatase 131, total bilirubin 1.6. CT scan of the abdomen and pelvis performed in the emergency room revealed nonspecific diffuse thickening of the entire colon, liver, gallbladder, pancreas, and spleen and all appeared unremarkable. IMPRESSION: A 51-year-old male alcoholic, recently on an alcohol binge. Admitted to the hospital with nausea, vomiting, abdominal pain, and chest pain. He does have elevated liver enzymes with AST 1259 and ALT 949 suggestive of alcoholic hepatitis. CT imaging is unremarkable. RECOMMENDATIONS 1. Check hepatitis serology. 2. Clear liquid diet as tolerated. 3. PPI. 4. Close observation for alcohol withdrawal. Braydon Anderson MD
[2017-01-04 16:57] LABS: HEPATITIS C ANTIBODY NEGATIVE (NEGATIVE)
[2017-01-05 06:58] VITALS: TEMP 98; O2SAT 99
[2017-01-05 07:59] LABS: HEMOGLOBIN 15.1 g/dL (14.0-18.0); MEAN CORPUSCULAR HEMOGLOBIN 31.2 pg (25.0-35.0); MEAN PLATELET VOLUME 9.1 fl (7.0-11.0); RBC 4.84 10^6/uL (3.5-6.1); RED CELL DISTRIBUTION WIDTH 14.9 % (11.5-14.5); WHITE BLOOD COUNT 3.3 10^3/ul (4.5-11.0)
[2017-01-05] MEDS ORDERED: Multivitamin With Minerals Tab PO SCH (08:00)
[2017-01-05 08:11] LABS: ALB/GLOB RATIO 1.1 (1.1-1.8); ALBUMIN 4.1 g/dL (3.0-4.8); ALT/SGPT 771 U/L (7-56); BLOOD UREA NITROGEN 4 mg/dL (7-21); CALCIUM 8.6 mg/dL (8.4-10.5); GFR AFRICAN-AMERICAN > 60; GFR NON-AFRICAN AMERICAN > 60
[2017-01-05 08:30] LABS: AST/SGOT 704 U/L (15-59)
--- NOTE | 2017-01-05 11:01 | PN ---
DATE: 01/05/2017 SUBJECTIVE: The patient is lying in bed. He appears comfortable. His abdominal pain is less. He denies any further chest pain, nausea or vomiting. His liver enzymes are trending downwards. PHYSICAL EXAMINATION: VITAL SIGNS: Reveal temperature is 98, blood pressure 106/72, heart rate 70. HEENT: Reveal sclerae to be white. Conjunctivae pink. NECK: Supple. CHEST: Reveal lungs to be clear. HEART: Reveals a regular rate and rhythm. ABDOMEN: Soft, mild mid abdominal tenderness. No mass. No rebound. No guarding. EXTREMITIES: Show no edema. LABORATORY DATA: Reveal white blood cell count 3.3. Hepatitis serology is negative. Chemistries reveal total bilirubin is 2.1, AST down to 704, ALT down to 771, alkaline phosphatase down to 153. IMPRESSION: A 51-year-old male with alcohol abuse, admitted with nausea, vomiting, abdominal pain, chest pain, elevated liver enzymes which are trending downwards. I suspect that the elevated liver enzymes is secondary to alcoholic hepatitis. His CT scan of the abdomen and pelvis is negative. His hepatitis serology is negative. RECOMMENDATIONS: 1. I will advance the patient to a soft, low-fat, ADA diet. If diet is tolerated, the patient can be discharged home with outpatient followup. Braydon Anderson MD
[2017-01-05 12:10] VITALS: BP 121/83; PULSE 88; RESP 20
--- NOTE | 2017-01-05 12:58 | CP.PCM.DIS ---
<LYUDMILA DEWEY - Last Filed: 01/05/17 18:08> Provider - Provider Date of Admission: 01/03/17 17:43 Attending physician: Evita Galicia MD Primary care physician: NO PRIMARY CARE PROVIDER Consults: GI: Anderson Time Spent in preparation of Discharge (in minutes): 45 Hospital Course - Lab Results Lab Results: Most Recent Lab Values WBC 3.3 10^3/ul (4.5-11.0) L 01/05/17 07:55 RBC 4.84 10^6/uL (3.5-6.1) 01/05/17 07:55 Hgb 15.1 g/dL (14.0-18.0) 01/05/17 07:55 Hct 43.1 % (42.0-52.0) 01/05/17 07:55 MCV 89.0 fl (80.0-105.0) 01/05/17 07:55 MCH 31.2 pg (25.0-35.0) 01/05/17 07:55 MCHC 35.0 g/dl (31.0-37.0) 01/05/17 07:55 RDW 14.9 % (11.5-14.5) H 01/05/17 07:55 Plt Count 225 10^3/uL (120.0-450.0) 01/05/17 07:55 MPV 9.1 fl (7.0-11.0) 01/05/17 07:55 Gran % 83.9 % (50.0-68.0) H 01/04/17 04:10 Lymph % (Auto) 11.3 % (22.0-35.0) L 01/04/17 04:10 [place] % (Auto) 3.4 % (1.0-6.0) 01/04/17 04:10 Eos % (Auto) 1.2 % (1.5-5.0) L 01/04/17 04:10 Baso % (Auto) 0.2 % (0.0-3.0) 01/04/17 04:10 Gran # 3.41 (1.4-6.5) 01/04/17 04:10 Lymph # 0.5 (1.2-3.4) L 01/04/17 04:10 [place] # 0.1 (0.1-0.6) 01/04/17 04:10 Eos # 0.1 (0.0-0.7) 01/04/17 04:10 Baso # 0.01 K/mm3 (0.0-2.0) 01/04/17 04:10 PT 12.8 Seconds (9.9-11.8) H 01/04/17 04:10 INR 1.19 (0.93-1.08) H 01/04/17 04:10 APTT 35.0 Seconds (23.7-30.8) H 01/04/17 04:10 Sodium 135 mmol/L (132-148) 01/05/17 07:55 Potassium 4.1 mmol/L (3.6-5.0) 01/05/17 07:55 Chloride 99 mmol/L (95-110) 01/05/17 07:55 Carbon Dioxide 24 mmol/L (21-33) 01/05/17 07:55 Anion Gap 16 (10-20) 01/05/17 07:55 BUN 4 mg/dL (7-21) L 01/05/17 07:55 Creatinine 0.6 mg/dL (0.5-1.4) 01/05/17 07:55 Est GFR ( Amer) > 60 01/05/17 07:55 Est GFR (Non-Af Amer) > 60 01/05/17 07:55 POC Glucose (mg/dL) 161 mg/dL (65-110) H 01/05/17 07:11 Random Glucose 165 mg/dL (70-110) H 01/05/17 07:55 Hemoglobin A1c 7.7 % (4.2-6.5) H 01/04/17 04:10 Lactic Acid 1.0 mmol/L (0.7-2.1) 01/04/17 04:10 Calcium 8.6 mg/dL (8.4-10.5) 01/05/17 07:55 Phosphorus 3.0 mg/dL (2.5-4.5) 01/04/17 04:10 Magnesium 2.2 mg/dL (1.7-2.2) 01/04/17 04:10 Total Bilirubin 2.1 mg/dL (0.2-1.3) H 01/05/17 07:55 Direct Bilirubin 0.9 mg/dL (0.0-0.4) H 01/03/17 14:15 AST 704 U/L (15-59) H 01/05/17 07:55 ALT 771 U/L (7-56) H 01/05/17 07:55 Alkaline Phosphatase 153 U/L (38-133) H 01/05/17 07:55 Ammonia 35 umol/L (9-33) H 01/04/17 08:20 Lactate Dehydrogenase 3122 U/L (333-699) H 01/03/17 14:15 Total Creatine Kinase 379 U/L (35-230) H 01/03/17 14:15 CK-MB (CK-2) 5.3 ng/mL (0.0-3.6) H 01/03/17 14:15 CK-MB (CK-2) % 1.4 % (2.5-3.0) L 01/03/17 14:15 Troponin I < 0.01 ng/mL 01/04/17 04:10 Total Protein 8.0 g/dL (5.8-8.3) 01/05/17 07:55 Albumin 4.1 g/dL (3.0-4.8) 01/05/17 07:55 Globulin 3.9 gm/dL 01/05/17 07:55 Albumin/Globulin Ratio 1.1 (1.1-1.8) 01/05/17 07:55 Triglycerides 509 mg/dL (35-160) H 01/04/17 04:10 Cholesterol 170 mg/dL (130-200) 01/04/17 04:10 LDL Cholesterol Direct 34 mg/dL (0-129) 01/04/17 04:10 HDL Cholesterol 59 mg/dL (29-60) 01/04/17 04:10 Lipase 141 U/L (23-300) 01/03/17 14:15 Vitamin B12 971 pg/mL (239-931) H 01/04/17 04:10 25-OH Vitamin D Total < 12.8 NG/ML (30.0-100.0) L 01/04/17 04:10 Urine Opiates Screen Negative (NEGATIVE) 01/03/17 16:00 Urine Methadone Screen Negative (NEGATIVE) 01/03/17 16:00 Acetaminophen < 10.0 ug/ml (10.0-20.0) L 01/03/17 14:15 Ur Barbiturates Screen Negative (NEGATIVE) 01/03/17 16:00 Ur Phencyclidine Scrn Negative (NEGATIVE) 01/03/17 16:00 Ur Amphetamines Screen Negative (NEGATIVE) 01/03/17 16:00 U Benzodiazepines Scrn Negative (NEGATIVE) 01/03/17 16:00 U Oth Cocaine Metabols Negative (NEGATIVE) 01/03/17 16:00 U Cannabinoids Screen Negative (NEGATIVE) 01/03/17 16:00 Alcohol, Quantitative 228 mg/dL (0-10) H 01/03/17 14:15 RPR Nonreactive (NONREACTIVE) 01/04/17 04:10 Hepatitis A IgM Ab Negative (NEGATIVE) 01/03/17 17:55 Hep Bs Antigen Negative (NEGATIVE) 01/03/17 17:55 Hep B Core IgM Ab Negative (NEGATIVE) 01/03/17 17:55 Hepatitis C Antibody Negative (NEGATIVE) 01/03/17 17:55 - Hospital Course Hospital Course: 51 yo M with PMH of HTN, DM, medication non-compliance, and chronic alcohol abuse who presented to the ED with complaint of increased emesis and abd /chest pain. He reports that he presented today due to increased abdominal pain and emesis, up to 6 times today. He admits to regular alcohol use, but the daily amount that he admits to varies, anywhere from 6 to > 8 drinks per day , shots of unspecified liquor. He reports daily emesis for the last 3 days prior to presentation, but reports that it is a common occurrence for him. He denies bilious or bloody emesis during these most recent episodes, but admits that he has had hematemesis with bouts of emesis while drinking previously. Abdominal pain is described as diffuse, most prominent at epigastric area. Admits to sexual activity, frequently with prostitutes, claims to be using protection, denies any hx of STDs. Poor appetite, vomiting up food and baby aspirin on day of admission, reports last PO food intake 4 days prior, no BM in the last 3 days. Admits to intermittent chest pain/pressure. In the ED, labs and imaging were obtained. Labs were significant for greatly elevated liver enzymes, alk phos, and LDH. Decreased phos and magnesium. Alcohol level was 228. Intial troponin was negative. CXR was unremarkable. CT abdomen showed colon wall thickening. EKG showed NSR. Pt was admitted for alcohol intoxication with the risk of alcohol withdrawal. CIWA protocol was administed. Pt was placed on banana bag and scheduled and PRN ativan. GI was consulted and recommended liquid diet, PPI, and hepatitis panel. Hepatitis panel was negative. On second day of admission, pt liver enzymes began to downtrend, urine tox screen was negative, rpr was negative, acetaminophen level was negative. Social work was consulted, recommendations were appreciated for alcohol rehab. Today, pt was seen and examined at bedside. Pt denied any acute overnight events. Pt states that he was able to ambulate within room without instability. Pt denies any tremors or symptoms of withdrawal. Pt denies any abdominal pain. Pt denies CP, SOB, n/v/d, chills, fevers, WILSON, or vertigo. Pt liver enzymes continued to downtrend.GI saw patient today and advanced patient' s diet. GI recommended if pt tolerated diet that he could be discharged. The patient was able to tolerate diet. As the patient's labs were improving and improving clinically, the patient will be discharged. The risks of alcohol was discussed with the patient and cessation was advised. Pt was advised to follow up with his PMD apon discharge as well as seek help through rehab. Discharge Exam - Head Exam Head Exam: ATRAUMATIC, NORMOCEPHALIC - Eye Exam Eye Exam: EOMI, PERRL. absent: Scleral icterus - ENT Exam ENT Exam: Mucous Membranes Moist - Neck Exam Neck exam: Full Rom - Respiratory Exam Respiratory Exam: Clear to PA & Lateral. absent: Rales, Rhonchi, Wheezes - Cardiovascular Exam Cardiovascular Exam: RRR. absent: Diastolic murmur, Gallop, Rubs, Systolic Murmur - GI/Abdominal Exam GI & Abdominal Exam: Normal Bowel Sounds, Soft. absent: Distended, Firm, Rebound, Rigid, Tenderness - Extremities Exam Extremities exam: normal inspection - Neurological Exam Neurological exam: Alert, Normal Gait, Oriented x3 Additional comments: No extremity tremor - Psychiatric Exam Psychiatric exam: Normal Affect, Normal Mood - Skin Skin Exam: Dry, Intact, Normal Color, Warm Discharge Plan - Follow Up Plan Condition: FAIR Disposition: HOME/ ROUTINE Instructions: Alcohol Intoxication (DC), Abuse of Alcohol (DC), Acute Abdominal Pain (DC), Acute Abdominal Pain (GEN) Additional Instructions: 1. Follow up with PMD within 1 week 2. Cease alcohol use 3. Follow up with alcoholic anonymous meetings 4. Return to ED if symptoms worsen including, but not limited to alcohol withdraw, tremors, seizures, chest pain, or shortness of breath Referrals: PCP,NO [Primary Care Provider] - <Evita Galicia - Last Filed: 01/06/17 06:57> Provider - Provider Date of Admission: 01/03/17 17:43 Attending physician: Evita Galicia MD Primary care physician: NO PRIMARY CARE PROVIDER Hospital Course - Lab Results Lab Results: Most Recent Lab Values WBC 3.3 10^3/ul (4.5-11.0) L 01/05/17 07:55 RBC 4.84 10^6/uL (3.5-6.1) 01/05/17 07:55 Hgb 15.1 g/dL (14.0-18.0) 01/05/17 07:55 Hct 43.1 % (42.0-52.0) 01/05/17 07:55 MCV 89.0 fl (80.0-105.0) 01/05/17 07:55 MCH 31.2 pg (25.0-35.0) 01/05/17 07:55 MCHC 35.0 g/dl (31.0-37.0) 01/05/17 07:55 RDW 14.9 % (11.5-14.5) H 01/05/17 07:55 Plt Count 225 10^3/uL (120.0-450.0) 01/05/17 07:55 MPV 9.1 fl (7.0-11.0) 01/05/17 07:55 Gran % 83.9 % (50.0-68.0) H 01/04/17 04:10 Lymph % (Auto) 11.3 % (22.0-35.0) L 01/04/17 04:10 [place] % (Auto) 3.4 % (1.0-6.0) 01/04/17 04:10 Eos % (Auto) 1.2 % (1.5-5.0) L 01/04/17 04:10 Baso % (Auto) 0.2 % (0.0-3.0) 01/04/17 04:10 Gran # 3.41 (1.4-6.5) 01/04/17 04:10 Lymph # 0.5 (1.2-3.4) L 01/04/17 04:10 [place] # 0.1 (0.1-0.6) 01/04/17 04:10 Eos # 0.1 (0.0-0.7) 01/04/17 04:10 Baso # 0.01 K/mm3 (0.0-2.0) 01/04/17 04:10 PT 12.8 Seconds (9.9-11.8) H 01/04/17 04:10 INR 1.19 (0.93-1.08) H 01/04/17 04:10 APTT 35.0 Seconds (23.7-30.8) H 01/04/17 04:10 Sodium 135 mmol/L (132-148) 01/05/17 07:55 Potassium 4.1 mmol/L (3.6-5.0) 01/05/17 07:55 Chloride 99 mmol/L (95-110) 01/05/17 07:55 Carbon Dioxide 24 mmol/L (21-33) 01/05/17 07:55 Anion Gap 16 (10-20) 01/05/17 07:55 BUN 4 mg/dL (7-21) L 01/05/17 07:55 Creatinine 0.6 mg/dL (0.5-1.4) 01/05/17 07:55 Est GFR ( Amer) > 60 01/05/17 07:55 Est GFR (Non-Af Amer) > 60 01/05/17 07:55 POC Glucose (mg/dL) 254 mg/dL (65-110) H 01/05/17 11:13 Random Glucose 165 mg/dL (70-110) H 01/05/17 07:55 Hemoglobin A1c 7.7 % (4.2-6.5) H 01/04/17 04:10 Lactic Acid 1.0 mmol/L (0.7-2.1) 01/04/17 04:10 Calcium 8.6 mg/dL (8.4-10.5) 01/05/17 07:55 Phosphorus 3.0 mg/dL (2.5-4.5) 01/04/17 04:10 Magnesium 2.2 mg/dL (1.7-2.2) 01/04/17 04:10 Total Bilirubin 2.1 mg/dL (0.2-1.3) H 01/05/17 07:55 Direct Bilirubin 0.9 mg/dL (0.0-0.4) H 01/03/17 14:15 AST 704 U/L (15-59) H 01/05/17 07:55 ALT 771 U/L (7-56) H 01/05/17 07:55 Alkaline Phosphatase 153 U/L (38-133) H 01/05/17 07:55 Ammonia 35 umol/L (9-33) H 01/04/17 08:20 Lactate Dehydrogenase 3122 U/L (333-699) H 01/03/17 14:15 Total Creatine Kinase 379 U/L (35-230) H 01/03/17 14:15 CK-MB (CK-2) 5.3 ng/mL (0.0-3.6) H 01/03/17 14:15 CK-MB (CK-2) % 1.4 % (2.5-3.0) L 01/03/17 14:15 Troponin I < 0.01 ng/mL 01/04/17 04:10 Total Protein 8.0 g/dL (5.8-8.3) 01/05/17 07:55 Albumin 4.1 g/dL (3.0-4.8) 01/05/17 07:55 Globulin 3.9 gm/dL 01/05/17 07:55 Albumin/Globulin Ratio 1.1 (1.1-1.8) 01/05/17 07:55 Triglycerides 509 mg/dL (35-160) H 01/04/17 04:10 Cholesterol 170 mg/dL (130-200) 01/04/17 04:10 LDL Cholesterol Direct 34 mg/dL (0-129) 01/04/17 04:10 HDL Cholesterol 59 mg/dL (29-60) 01/04/17 04:10 Lipase 141 U/L (23-300) 01/03/17 14:15 Vitamin B12 971 pg/mL (239-931) H 01/04/17 04:10 25-OH Vitamin D Total < 12.8 NG/ML (30.0-100.0) L 01/04/17 04:10 Urine Opiates Screen Negative (NEGATIVE) 01/03/17 16:00 Urine Methadone Screen Negative (NEGATIVE) 01/03/17 16:00 Acetaminophen < 10.0 ug/ml (10.0-20.0) L 01/03/17 14:15 Ur Barbiturates Screen Negative (NEGATIVE) 01/03/17 16:00 Ur Phencyclidine Scrn Negative (NEGATIVE) 01/03/17 16:00 Ur Amphetamines Screen Negative (NEGATIVE) 01/03/17 16:00 U Benzodiazepines Scrn Negative (NEGATIVE) 01/03/17 16:00 U Oth Cocaine Metabols Negative (NEGATIVE) 01/03/17 16:00 U Cannabinoids Screen Negative (NEGATIVE) 01/03/17 16:00 Alcohol, Quantitative 228 mg/dL (0-10) H 01/03/17 14:15 Anti-Smooth Muscle Ab Negative (Negative) 01/04/17 04:10 RPR Nonreactive (NONREACTIVE) 01/04/17 04:10 Hepatitis A IgM Ab Negative (NEGATIVE) 01/03/17 17:55 Hep Bs Antigen Negative (NEGATIVE) 01/03/17 17:55 Hep B Core IgM Ab Negative (NEGATIVE) 01/03/17 17:55 Hepatitis C Antibody Negative (NEGATIVE) 01/03/17 17:55 Attending/Attestation - Attestation I have personally seen and examined this patient.: Yes I have fully participated in the care of the patient.: Yes I have reviewed all pertinent clinical information, including history, physical exam and plan: Yes Notes (Text): 01/05/17 51 year old male with past medical history of hypertension, diabetes and chronic alcohol abuse who presented with complaint of abdominal pain and vomiting. He was admitted for alcohol withdrawal and alcohol hepatitis. He was seen and evaluated by GI. His LFTs were elevated and slowly began to improve. His symptoms also improved and his diet was advanced. His ativan was tapered. He was counselled on alcohol abstinence. Patient is discharged home to follow up with his pmd or [facility]. Monitor LFTs closely as outpatient. Follow up with AA. Counselled on alcohol abstinence. Evita Galicia MD. Hospitalist.
== END 2017-01-05 14:43 | disposition home or self-care (01) | DRG 750 ==
LOC: ED 13:54 → ERH 17:43 → 2RNO 19:07
PROVIDERS: ADMIT Internal Medicine; ATTEND Internal Medicine
DX: F10.239 Alcohol dependence with withdrawal, unspecified (principal); E86.0 Dehydration; E46 Unspecified protein-calorie malnutrition; K70.40 Alcoholic hepatic failure without coma; K70.10 Alcoholic hepatitis without ascites; K86.1 Other chronic pancreatitis; I10 Essential (primary) hypertension; E11.9 Type 2 diabetes mellitus without complications; Z91.14 Patient's other noncompliance with medication regimen; R07.89 Other chest pain; E78.1 Pure hyperglyceridemia; K29.20 Alcoholic gastritis without bleeding; Z68.23 Body mass index [BMI] 23.0-23.9, adult; Z79.4 Long term (current) use of insulin; Y90.8 Blood alcohol level of 240 mg/100 ml or more

== ENCOUNTER 2017-03-17 09:03 | Emergency (ER) | payer OTHER ==
[2017-03-17 09:30] VITALS: BMI 25.0
[2017-03-17] MEDS ORDERED: Sodium Chloride 0.9% 1,000 ML IV STA (09:52)
[2017-03-17 10:19] LABS: BASO # 0.03 K/mm3 (0.0-2.0); BASO % 0.7 % (0.0-3.0); EOS % 0.7 % (1.5-5.0); GRAN # 2.44 (1.4-6.5); GRAN % 59.6 % (50.0-68.0); HEMATOCRIT 39.8 % (42.0-52.0); LYMPH # 1.3 (1.2-3.4); LYMPH % 31.2 % (22.0-35.0); MEAN CELL VOLUME 94.5 fl (80.0-105.0); MEAN CORPUSCULAR HEMOGLOBIN 32.3 pg (25.0-35.0); MEAN CORPUSCULAR HGB CONC 34.2 g/dl (31.0-37.0); MEAN PLATELET VOLUME 9.5 fl (7.0-11.0); MONO # 0.3 (0.1-0.6); MONO % 7.8 % (1.0-6.0); RED CELL DISTRIBUTION WIDTH 13.2 % (11.5-14.5); WHITE BLOOD COUNT 4.1 10^3/ul (4.5-11.0)
[2017-03-17 10:21] LABS: URINE BILIRUBIN NEGATIVE (NEGATIVE); URINE BLOOD NEGATIVE (NEGATIVE); URINE GLUCOSE (UA) NEGATIVE (NEGATIVE); URINE KETONE NEGATIVE (NEGATIVE); URINE LEUKOCYTE ESTERASE NEGATIVE Leu/uL (NEGATIVE); URINE PROTEIN NEGATIVE mg/dL (<30 mg/dL); URINE UROBILINOGEN 0.2 E.U./dL (<1 E.U./dL)
[2017-03-17 10:22] LABS: URINE APPEARANCE CLEAR (CLEAR); URINE COLOR LIGHT YELLOW (YELLOW)
[2017-03-17 10:24] LABS: ALB/GLOB RATIO 1.4 (1.1-1.8); ALKALINE PHOSPHATASE 133 U/L (38-126); ALT/SGPT 45 U/L (7-56); AST/SGOT 40 U/L (17-59); BILIRUBIN,TOTAL 0.6 mg/dL (0.2-1.3); BLOOD UREA NITROGEN 14 mg/dL (7-21); CALCIUM 9.5 mg/dL (8.4-10.5); CARBON DIOXIDE 28 mmol/L (21-33); CHLORIDE 100 mmol/L (98-107); GFR AFRICAN-AMERICAN > 60; GLUCOSE,RANDOM 126 mg/dL (70-110); LIPASE 152 U/L (23-300); SODIUM 137 mmol/L (132-148); TOTAL PROTEIN 7.9 g/dL (5.8-8.3)
[2017-03-17 10:31] LABS: INR 1.01 (0.93-1.08); PARTIAL THROMBOPLASTIN TIME 30.8 Seconds (25.1-36.5)
--- NOTE | 2017-03-17 10:34 | ED PDOC ---
Arrival/HPI - General Chief Complaint: Back Pain Time Seen by Provider: 03/17/17 09:32 Historian: Patient - History of Present Illness Narrative History of Present Illness (Text): 03/17/17 10:19 51yo male with PMhx of hypertension and diabetes present with lower back pain. He notes chronic history of this lower back pain. Pain is worse with movement. He also report nausea/vomiting for weeks. Notes he drinks alcohol daily. Last alcohol was yesterday. He denies abdominal pain, fever, chills, urinary symptoms , hematuria, ripping/tearing upper back pain, dizziness, any other complaint. Past Medical History - Provider Review Nursing Documentation Reviewed: Yes - Infectious Disease Hx of Infectious Diseases: None - Tetanus Immunization Tetanus Immunization: Unknown - Cardiac Hx Cardiac Disorders: Yes Hx Hypertension: Yes - Pulmonary Hx Respiratory Disorders: No - Neurological Hx Neurological Disorder: No - HEENT Hx HEENT Disorder: Yes Hx Cataracts: Yes (bilateral sx) - Renal Hx Renal Disorder: No - Endocrine/Metabolic Hx Endocrine Disorders: Yes Hx Diabetes Mellitus Type 2: Yes (niddm) - Hematological/Oncological Hx Blood Disorders: No - Integumentary Hx Dermatological Disorder: No - Musculoskeletal/Rheumatological Hx Falls: Yes - Gastrointestinal Hx Gastrointestinal Disorders: No - Genitourinary/Gynecological Hx Genitourinary Disorders: Yes Hx Prostate Problems: Yes - Psychiatric Hx Psychophysiologic Disorder: Yes (eoh abuse) Hx Substance Use: No - Past Surgical History Past Surgical History: No Previous - Surgical History Hx Appendectomy: No Hx Cholecystectomy: No - Anesthesia Hx Anesthesia: No - Suicidal Assessment Feels Threatened In Home Enviroment: No Family/Social History - Physician Review Nursing Documentation Reviewed: Yes Family/Social History: Unknown Family HX Smoking Status: Never Smoked Hx Alcohol Use: Yes Frequency of alcohol use: Socially Hx Substance Use: No Hx Substance Use Treatment: No Allergies/Home Meds Allergies/Adverse Reactions: Allergies No Known Allergies Allergy (Verified 03/17/17 09:36) Home Medications: Home Meds Medication Instructions Recorded Confirmed Aspirin [Adult Low Dose Aspirin EC] 81 mg PO DAILY 03/17/17 03/17/17 Ibuprofen [Motrin] 400 mg PO PRN PRN 03/17/17 03/17/17 Insulin Detemir [Levemir] 0 unit SUBCUT BID 03/17/17 03/17/17 metFORMIN [glucOPHAGE] 500 mg PO BID 03/17/17 03/17/17 Review of Systems - Physician Review All systems were reviewed & negative as marked: Yes - Review of Systems Constitutional: Normal Eyes: Normal ENT: Normal Respiratory: Normal Cardiovascular: Normal Gastrointestinal: Nausea, Vomiting. absent: Abdominal Pain, Constipation, Hematochezia Genitourinary Male: Normal Musculoskeletal: Back Pain Skin: Normal Neurological: Normal Endocrine: Normal Hemo/Lymphatic: Normal Psychiatric: Normal Physical Exam Vital Signs Reviewed: Yes Vital Signs Temp Pulse Resp BP Pulse Ox 03/17/17 11:04 98 F 75 20 129/72 99 03/17/17 09:30 98.5 F 77 16 124/87 98 03/17/17 09:29 98.5 F 77 18 124/87 98 Temperature: Afebrile Blood Pressure: Normal Pulse: Regular Respiratory Rate: Normal Appearance: Positive for: Well-Appearing, Non-Toxic, Comfortable Pain Distress: None Mental Status: Positive for: Alert and Oriented X 3 - Systems Exam Head: Present: Atraumatic, Normocephalic Pupils: Present: PERRL Extroacular Muscles: Present: EOMI Conjunctiva: Present: Normal Mouth: Present: Moist Mucous Membranes Neck: Present: Normal Range of Motion Respiratory/Chest: Present: Clear to Auscultation, Good Air Exchange. No: Respiratory Distress, Accessory Muscle Use Cardiovascular: Present: Regular Rate and Rhythm, Normal S1, S2. No: Murmurs Abdomen: Present: Normal Bowel Sounds. No: Tenderness, Distention, Peritoneal Signs Back: Present: Pain with Leg Raise (B/L). No: Midline Tenderness, Paraspinal Tenderness Upper Extremity: Present: Normal Inspection. No: Cyanosis, Edema Lower Extremity: Present: Normal Inspection. No: Edema Neurological: Present: GCS=15, CN II-XII Intact, Speech Normal Skin: Present: Warm, Dry, Normal Color. No: Rashes Psychiatric: Present: Alert, Oriented x 3, Normal Insight, Normal Concentration Medical Decision Making ED Course and Treatment: 03/17/17 19:19 PT presented for stated history. He reported chronic history of same pain. He was ambulatory and have no focal neurological deficit. Lab was reviewed and unremarkable His pain was controlled with NSID and muscle relaxer in ED. Referred to his PMD/clinic. He ask for refill of his hypoglycemic and was given. - Lab Interpretations Lab Results: 03/17/17 10:10 03/17/17 10:10 Lab Results 03/17/17 10:10: Sodium 137, Potassium 4.0, Chloride 100, Carbon Dioxide 28, Anion Gap 13, BUN 14, Creatinine 0.6 L, Est GFR ( Amer) > 60, Est GFR ( Non-Af Amer) > 60, Random Glucose 126 H, Calcium 9.5, Total Bilirubin 0.6, AST 40, ALT 45, Alkaline Phosphatase 133 H, Total Protein 7.9, Albumin 4.6, Globulin 3.3, Albumin/Globulin Ratio 1.4, Lipase 152 03/17/17 10:10: PT 11.1, INR 1.01, APTT 30.8 03/17/17 10:10: WBC 4.1 L D, RBC 4.21, Hgb 13.6 L, Hct 39.8 L, MCV 94.5 D, MCH 32.3, MCHC 34.2, RDW 13.2, Plt Count 278, MPV 9.5, Gran % 59.6, Lymph % (Auto) 31.2, [place] % (Auto) 7.8 H, Eos % (Auto) 0.7 L, Baso % (Auto) 0.7, Gran # 2.44, Lymph # 1.3, [place] # 0.3, Eos # 0.0, Baso # 0.03 03/17/17 10:00: Urine Color Light yellow, Urine Appearance Clear, Urine pH 6.0, Ur Specific [place] <= 1.005, Urine Protein Negative, Urine Glucose (UA) Negative, Urine Ketones Negative, Urine Blood Negative, Urine Nitrate Negative, Urine Bilirubin Negative, Urine Urobilinogen 0.2, Ur Leukocyte Esterase Negative - Medication Orders Current Medication Orders: Discontinued Medications Sodium Chloride (Sodium Chloride 0.9%) 1,000 mls @ 999 mls/hr IV .Q1H1M STA Stop: 03/17/17 10:52 Last Admin: 03/17/17 10:18 Dose: 999 mls/hr eMAR Start Stop Document 03/17/17 10:18 MS (Rec: 03/17/17 10:19 MS [id number]) Intravenous Solution Start Date 03/17/17 Start Time 10:18 Ketorolac Tromethamine (Toradol) 30 mg IVP STAT STA Stop: 03/17/17 09:53 Last Admin: 03/17/17 10:17 Dose: 30 mg MAR Pain Assessment Document 03/17/17 10:17 MS (Rec: 03/17/17 10:18 MS [facility]) Pain Reassessment Is this a pain reassessment? Yes Sleep Is patient sleeping during reassessment? No Presence of Pain Presence of Pain No Pain Scale Used Pain Scale Used Numeric Location Left, Right or Bilateral Bilateral Upper or Lower Lower Pain Location Body Site Back Description Description Constant Intensity of Pain at present 8 Duration 3 days Pain Behavior Guarding Rubbing Site Aggravating Factors Changing Position Alleviating Factors/Management Medication Techniques Alleviating Factors Position Change IVP Administration Document 03/17/17 10:17 MS (Rec: 03/17/17 10:18 MS [place] [id number]) Charges for Administration # of IVP Administrations 1 Ondansetron HCl (Zofran Inj) 4 mg IVP STAT STA Stop: 03/17/17 09:53 Last Admin: 03/17/17 10:14 Dose: 4 mg IVP Administration Document 03/17/17 10:14 MS (Rec: 03/17/17 10:17 MS [place] [id number]) Charges for Administration # of IVP Administrations 1 Disposition/Present on Arrival - Present on Arrival Any Indicators Present on Arrival: No History of DVT/PE: No History of Uncontrolled Diabetes: No Urinary Catheter: No History of Decub. Ulcer: No History Surgical Site Infection Following: None - Disposition Have Diagnosis and Disposition been Completed?: Yes Diagnosis: Back pain, Vomiting Disposition: HOME/ ROUTINE Disposition Time: 10:45 Patient Plan: Discharge Condition: STABLE Discharge Instructions (ExitCare): Acute Nausea and Vomiting (ED), Chronic Back Pain (ED) Additional Instructions: Follow up with the clinic Return to ED for any new symptoms Prescriptions: Ibuprofen [Motrin Tab] 600 mg PO Q6 #15 tab metFORMIN [glucOPHAGE] 500 mg PO BID #30 tab Referrals: [facility] [Primary Care Provider] - Follow up with primary [facility] [Outside] - Follow up with primary Forms: [employer] (Moroccan)
[2017-03-17 11:05] VITALS: BP 129/72; PULSE 75; RESP 20; TEMP 98; O2SAT 99
== END 2017-03-17 11:07 | disposition home or self-care (01) ==
LOC: ED 09:03
DX: M54.5 Low back pain (principal); R11.10 Vomiting, unspecified; E11.9 Type 2 diabetes mellitus without complications; I10 Essential (primary) hypertension; Z79.4 Long term (current) use of insulin; Z79.82 Long term (current) use of aspirin
CPT/HCPCS: 80053; 81003; 83690; 85025; 85610; 85730; 96374; 96375; 99283; J1885; J2405; J7040

== ENCOUNTER 2017-04-03 10:29 | Emergency (ER) | payer OTHER ==
[2017-04-03 10:29] VITALS: BMI 25.0
[2017-04-03] MEDS ORDERED: Sodium Chloride 0.9% 1,000 ML IV STA (11:15)
--- NOTE | 2017-04-03 11:17 | ED PDOC ---
Arrival/HPI - General Chief Complaint: Abdominal Pain Time Seen by Provider: 04/03/17 11:05 Historian: Patient - History of Present Illness Narrative History of Present Illness (Text): 04/03/17 11:14 This is a 51 yo M with PMH of HTN, DM, medication non-compliance, and chronic alcohol abuse who presented to the ED with complaint of diffused abdominal pain, nausea, and vomiting x 1 day. Patient denies sob, cp, or urinary symptoms. Time/Duration: Other (see hpi) Context: Home Past Medical History - Provider Review Nursing Documentation Reviewed: Yes - Infectious Disease Hx of Infectious Diseases: None - Tetanus Immunization Tetanus Immunization: Unknown - Cardiac Hx Cardiac Disorders: Yes Hx Hypertension: Yes - Pulmonary Hx Respiratory Disorders: No - Neurological Hx Neurological Disorder: No - HEENT Hx HEENT Disorder: Yes Hx Cataracts: Yes (bilateral sx) - Renal Hx Renal Disorder: No - Endocrine/Metabolic Hx Endocrine Disorders: Yes Hx Diabetes Mellitus Type 2: Yes (niddm) - Hematological/Oncological Hx Blood Disorders: No - Integumentary Hx Dermatological Disorder: No - Musculoskeletal/Rheumatological Hx Falls: Yes - Gastrointestinal Hx Gastrointestinal Disorders: No - Genitourinary/Gynecological Hx Genitourinary Disorders: Yes Hx Prostate Problems: Yes - Psychiatric Hx Psychophysiologic Disorder: Yes (eoh abuse) Hx Substance Use: No - Past Surgical History Past Surgical History: No Previous - Surgical History Hx Appendectomy: No Hx Cholecystectomy: No - Anesthesia Hx Anesthesia: No - Suicidal Assessment Feels Threatened In Home Enviroment: No Family/Social History - Physician Review Nursing Documentation Reviewed: Yes Family/Social History: Other (noncontributory) Smoking Status: Never Smoked Hx Alcohol Use: Yes Hx Substance Use: No Hx Substance Use Treatment: No Allergies/Home Meds Allergies/Adverse Reactions: Allergies No Known Allergies Allergy (Verified 04/03/17 10:54) Home Medications: Home Meds Medication Instructions Recorded Confirmed Insulin Detemir [Levemir] 0 unit SUBCUT BID 03/17/17 04/03/17 Review of Systems - Review of Systems Constitutional: Normal. absent: Fatigue, Weight Change, Fevers Eyes: Normal ENT: Normal Respiratory: Normal. absent: SOB, Cough Cardiovascular: Normal. absent: Chest Pain, Palpitations Gastrointestinal: Abdominal Pain, Nausea, Vomiting. absent: Stool Changes, Constipation, Diarrhea, Appetite Changes, Anorexia, Food Intolerance Genitourinary Male: Normal. absent: Dysuria, Frequency, Hematuria Musculoskeletal: Normal. absent: Arthralgias, Back Pain Skin: Normal Neurological: Normal. absent: Headache, Dizziness, Focal Weakness, Gait Changes Endocrine: Normal Hemo/Lymphatic: Normal Psychiatric: Normal Physical Exam Vital Signs Temp Pulse Resp BP Pulse Ox 04/03/17 19:03 86 15 119/71 98 04/03/17 18:40 98.6 F 84 16 124/74 99 04/03/17 16:04 97.9 F 91 H 16 128/77 99 04/03/17 13:36 97.9 F 88 16 123/76 99 04/03/17 10:52 98.2 F 91 H 15 126/82 98 Temperature: Afebrile Blood Pressure: Normal Pulse: Regular Respiratory Rate: Normal Appearance: Positive for: Well-Appearing, Non-Toxic, Comfortable Pain Distress: None Mental Status: Positive for: Alert and Oriented X 3 Finger Stick Blood Glucose: 113 - Systems Exam Head: Present: Atraumatic, Normocephalic Pupils: Present: PERRL Extroacular Muscles: Present: EOMI Conjunctiva: Present: Normal Mouth: Present: Moist Mucous Membranes Pharnyx: Present: Normal. No: ERYTHEMA, EXUDATE, TONSILS ENLARGED Nose (External): Present: Atraumatic Nose (Internal): Present: Normal Inspection Neck: Present: Normal Range of Motion, Trachea Midline. No: Meningeal Signs, MIDLINE TENDERNESS, Paraspinal Tenderness Respiratory/Chest: Present: Clear to Auscultation, Good Air Exchange. No: Respiratory Distress, Accessory Muscle Use, Wheezes, Retracting, Rhonchi Cardiovascular: Present: Regular Rate and Rhythm, Normal S1, S2. No: Murmurs Abdomen: Present: Normal Bowel Sounds. No: Tenderness, Distention, Peritoneal Signs, Rebound, Guarding Back: Present: Normal Inspection. No: CVA Tenderness, Midline Tenderness Upper Extremity: Present: Normal Inspection, Normal ROM, NORMAL PULSES, Neurovascularly Intact, Capillary Refill < 2s. No: Cyanosis, Edema Lower Extremity: Present: Normal Inspection, NORMAL PULSES, Normal ROM, Neurovascularly Intact, Capillary Refill < 2 s. No: Edema, CALF TENDERNESS Neurological: Present: GCS=15, CN II-XII Intact, Motor Func Grossly Intact, Normal Sensory Function, Normal Cerebellar Funct Skin: Present: Warm, Dry, Normal Color. No: Rashes Psychiatric: Present: Alert, Oriented x 3, Intoxicated Medical Decision Making ED Course and Treatment: 04/03/17 20:07 Re-evaluation. Patient feels better. Discussed results and plan with patient who expresses understanding. All questions answered and there is agreement with the plan to discharge home with instructions. Patient stable for discharge. Return if symptoms persist or worsen. Re-evaluation Time: 20:10 Reassessment Condition: Re-examined, Improved - Lab Interpretations Lab Results: 04/03/17 11:30 04/03/17 11:30 Lab Results 04/03/17 11:55: Urine Color Yellow, Urine Appearance Sl cloudy, Urine pH 7.0, Ur Specific [place] 1.015, Urine Protein 30 H, Urine Glucose (UA) Negative, Urine Ketones Negative, Urine Blood Trace-intact H, Urine Nitrate Negative, Urine Bilirubin Negative, Urine Urobilinogen 1.0 H, Ur Leukocyte Esterase Negative, Urine RBC 0 - 2, Urine WBC Negative 04/03/17 11:30: Sodium 135, Potassium 3.5 L, Chloride 95 L, Carbon Dioxide 27, Anion Gap 17, BUN 10, Creatinine 0.6 L, Est GFR ( Amer) > 60, Est GFR ( Non-Af Amer) > 60, Random Glucose 120 H, Calcium 9.8, Total Bilirubin 1.7 H, AST 97 H D, ALT 73 H, Alkaline Phosphatase 128 H, Total Protein 7.7, Albumin 4.4 , Globulin 3.3, Albumin/Globulin Ratio 1.3, Lipase 123 04/03/17 11:30: WBC 5.9 D, RBC 4.37, Hgb 14.0, Hct 39.3 L, MCV 89.9 D, MCH 32.0, MCHC 35.6, RDW 12.7, Plt Count 189, MPV 9.6, Gran % 84.5 H, Lymph % (Auto ) 11.0 L, [place] % (Auto) 4.1, Eos % (Auto) 0.2 L, Baso % (Auto) 0.2, Gran # 4.99 , Lymph # 0.7 L, [place] # 0.2, Eos # 0.0, Baso # 0.01 I have reviewed the lab results: Yes Interpretation: No clinic. lab abnormalty - Medication Orders Current Medication Orders: Discontinued Medications Famotidine (Pepcid) 20 mg IVP STAT STA Stop: 04/03/17 11:16 Last Admin: 04/03/17 11:54 Dose: 20 mg IVP Administration Document 04/03/17 11:54 MS (Rec: 04/03/17 11:54 MS [id number]) Charges for Administration # of IVP Administrations 1 Sodium Chloride (Sodium Chloride 0.9%) 1,000 mls @ 1,000 mls/hr IV .Q1H STA Stop: 04/03/17 12:14 Last Admin: 04/03/17 11:40 Dose: 1,000 mls/hr eMAR Start Stop Document 04/03/17 11:40 MS (Rec: 04/03/17 11:40 MS [id number]) Intravenous Solution Start Date 04/03/17 Start Time 11:40 End Date 04/03/17 End time 12:40 Total Infusion Time 60 Lorazepam (Ativan) 1 mg IVP ONCE ONE PRN Reason: Protocol Stop: 04/03/17 14:07 Last Admin: 04/03/17 14:18 Dose: 1 mg IVP Administration Document 04/03/17 14:18 MS (Rec: 04/03/17 14:18 MS [id number]) Charges for Administration # of IVP Administrations 1 Ondansetron HCl (Zofran Inj) 4 mg IVP STAT STA Stop: 04/03/17 11:18 Last Admin: 04/03/17 11:54 Dose: 4 mg IVP Administration Document 04/03/17 11:54 MS (Rec: 04/03/17 11:54 MS [id number]) Charges for Administration # of IVP Administrations 1 Thiamine HCl (Vitamin B1 Inj) 100 mg IV STAT STA Stop: 04/03/17 11:19 Last Admin: 04/03/17 11:52 Dose: 100 mg eMAR Start Stop Document 04/03/17 11:52 MS (Rec: 04/03/17 11:54 MS [id number]) Intravenous Solution Start Date 04/03/17 Start Time 11:52 End Date 04/03/17 Disposition/Present on Arrival - Present on Arrival Any Indicators Present on Arrival: No History of DVT/PE: No History of Uncontrolled Diabetes: No Urinary Catheter: No History of Decub. Ulcer: No History Surgical Site Infection Following: None - Disposition Have Diagnosis and Disposition been Completed?: Yes Diagnosis: Alcohol abuse, Nonspecific abdominal pain Disposition: HOME/ ROUTINE Disposition Time: 20:11 Patient Plan: Discharge Patient Problems: Current Active Problems Problem Status Onset Alcohol abuse Acute Nonspecific abdominal pain Acute Condition: GOOD Discharge Instructions (ExitCare): Abuse of Alcohol (ED) Additional Instructions: Call private doctor for follow up visit in 1-2 days. Quit drinking alcohol. Return to emergency if pain returns, or new symptoms develop Referrals: Alcohol[facility] Anonymous [Outside] - Follow up with primary [facility] [Outside] - Follow up with primary [facility] [Outside] - Follow up with primary Forms: [employer] (Welsh)
[2017-04-03] MEDS ORDERED: Thiamine 100 mg/ml Inj IV STA (11:18)
[2017-04-03 11:44] LABS: BASO # 0.01 K/mm3 (0.0-2.0); BASO % 0.2 % (0.0-3.0); EOS % 0.2 % (1.5-5.0); GRAN # 4.99 (1.4-6.5); GRAN % 84.5 % (50.0-68.0); HEMATOCRIT 39.3 % (42.0-52.0); LYMPH # 0.7 (1.2-3.4); MEAN CELL VOLUME 89.9 fl (80.0-105.0); MEAN CORPUSCULAR HGB CONC 35.6 g/dl (31.0-37.0); MEAN PLATELET VOLUME 9.6 fl (7.0-11.0); MONO # 0.2 (0.1-0.6); MONO % 4.1 % (1.0-6.0); RED CELL DISTRIBUTION WIDTH 12.7 % (11.5-14.5); WHITE BLOOD COUNT 5.9 10^3/ul (4.5-11.0)
[2017-04-03 11:52] LABS: ALB/GLOB RATIO 1.3 (1.1-1.8); ALKALINE PHOSPHATASE 128 U/L (38-126); ALT/SGPT 73 U/L (7-56); AST/SGOT 97 U/L (17-59); BILIRUBIN,TOTAL 1.7 mg/dL (0.2-1.3); BLOOD UREA NITROGEN 10 mg/dL (7-21); CALCIUM 9.8 mg/dL (8.4-10.5); CARBON DIOXIDE 27 mmol/L (21-33); CHLORIDE 95 mmol/L (98-107); GFR AFRICAN-AMERICAN > 60; GLUCOSE,RANDOM 120 mg/dL (70-110); LIPASE 123 U/L (23-300); POTASSIUM 3.5 mmol/L (3.6-5.0); SODIUM 135 mmol/L (132-148); TOTAL PROTEIN 7.7 g/dL (5.8-8.3)
[2017-04-03 12:05] LABS: URINE APPEARANCE SL CLOUDY (CLEAR); URINE BILIRUBIN NEGATIVE (NEGATIVE); URINE BLOOD TRACE-INTACT (NEGATIVE); URINE COLOR YELLOW (YELLOW); URINE GLUCOSE (UA) NEGATIVE (NEGATIVE); URINE KETONE NEGATIVE (NEGATIVE); URINE LEUKOCYTE ESTERASE NEGATIVE Leu/uL (NEGATIVE); URINE PROTEIN 30 mg/dL (<30 mg/dL)
[2017-04-03 12:32] LABS: URINE RBC 0 - 2 /hpf (0-2); URINE WBC NEGATIVE /hpf (0-6)
[2017-04-03 18:40] VITALS: TEMP 98.6
[2017-04-03 20:23] VITALS: BP 118/60; PULSE 88; RESP 17; O2SAT 99
--- NOTE | 2017-04-03 22:10 | CARD ---
APPROVED REPORT EKG Measurement Heart [id number] <Conclusion> Normal sinus rhythm Normal ECG
== END 2017-04-03 20:27 | disposition home or self-care (01) ==
LOC: ED 10:29
DX: F10.10 Alcohol abuse, uncomplicated (principal); R10.9 Unspecified abdominal pain; I10 Essential (primary) hypertension; E11.9 Type 2 diabetes mellitus without complications; Z79.4 Long term (current) use of insulin
CPT/HCPCS: 80053; 81001; 83690; 85025; 93005; 96361; 96374; 96375; 99285; J2060; J2405; J3411; J7040

== ENCOUNTER 2017-04-18 06:18 | Emergency (ER) | payer OTHER ==
[2017-04-18 06:19] VITALS: BMI 25.0
[2017-04-18 06:23] VITALS: TEMP 98.3
[2017-04-18] MEDS ORDERED: Famotidine 20mg/50ml 50 ML IVPB STA (07:49)
--- NOTE | 2017-04-18 07:50 | ED PDOC ---
Arrival/HPI - General Chief Complaint: GI Problem Time Seen by Provider: 04/18/17 07:28 Historian: Patient - History of Present Illness Narrative History of Present Illness (Text): 04/18/17 07:37 A 51 year old male, whose past medical history includes hypertension, diabetes, diabetic neuropathy, and chronic EtOH abuse, presents to the emergency department complaining of nausea. vomiting, and epigastric abdominal pain for several days. Patient reports also experiencing tingling sensation to hands and feet with associated pain for many months and he was told he had neuropathy. Also, patient mention he was prescribed Levemir from last admission at [facility]. No PMD Time/Duration: < week (several days) Symptom Onset: Gradual Symptom Course: Unchanged Past Medical History - Provider Review Nursing Documentation Reviewed: Yes - Infectious Disease Hx of Infectious Diseases: None - Tetanus Immunization Tetanus Immunization: Unknown - Cardiac Hx Cardiac Disorders: Yes Hx Hypertension: Yes - Pulmonary Hx Respiratory Disorders: No - Neurological Hx Neurological Disorder: No - HEENT Hx HEENT Disorder: Yes Hx Cataracts: Yes (bilateral sx) - Renal Hx Renal Disorder: No - Endocrine/Metabolic Hx Endocrine Disorders: Yes Hx Diabetes Mellitus Type 2: Yes (niddm) - Hematological/Oncological Hx Blood Disorders: No - Integumentary Hx Dermatological Disorder: No - Musculoskeletal/Rheumatological Hx Falls: Yes - Gastrointestinal Hx Gastrointestinal Disorders: No - Genitourinary/Gynecological Hx Genitourinary Disorders: Yes Hx Prostate Problems: Yes - Psychiatric Hx Psychophysiologic Disorder: Yes (eoh abuse) Hx Substance Use: No - Past Surgical History Past Surgical History: No Previous - Surgical History Hx Appendectomy: No Hx Cholecystectomy: No - Anesthesia Hx Anesthesia: No - Suicidal Assessment Feels Threatened In Home Enviroment: No Family/Social History - Physician Review Nursing Documentation Reviewed: Yes Family/Social History: No Known Family HX Smoking Status: Never Smoked Hx Alcohol Use: Yes Frequency of alcohol use: Daily Hx Substance Use: No Hx Substance Use Treatment: No Allergies/Home Meds Allergies/Adverse Reactions: Allergies No Known Allergies Allergy (Verified 04/18/17 06:23) Home Medications: Home Meds Medication Instructions Recorded Confirmed Insulin Detemir [Levemir] 0 unit SUBCUT BID 03/17/17 04/18/17 Review of Systems - Physician Review All systems were reviewed & negative as marked: Yes - Review of Systems Constitutional: absent: Fevers, Night Sweats Respiratory: absent: SOB Cardiovascular: absent: Chest Pain Gastrointestinal: Abdominal Pain (epigastric), Nausea, Vomiting Neurological: Other (tingling to hands and feet wth associated pain) Physical Exam Vital Signs Reviewed: Yes Vital Signs Temp Pulse Resp BP Pulse Ox 04/18/17 06:21 98.3 F 81 16 118/85 97 Temperature: Afebrile Blood Pressure: Normal Pulse: Regular Respiratory Rate: Normal Appearance: Positive for: Well-Appearing Pain Distress: None Mental Status: Positive for: Alert and Oriented X 3 - Systems Exam Head: Present: Atraumatic, Normocephalic Pupils: Present: PERRL Extroacular Muscles: Present: EOMI Conjunctiva: Present: Normal Mouth: Present: Other (alcohol breath) Neck: Present: Normal Range of Motion Respiratory/Chest: Present: Clear to Auscultation, Good Air Exchange. No: Respiratory Distress, Accessory Muscle Use Cardiovascular: Present: Regular Rate and Rhythm, Normal S1, S2. No: Murmurs Abdomen: Present: Normal Bowel Sounds. No: Tenderness, Distention, Peritoneal Signs Back: Present: Normal Inspection Upper Extremity: Present: Normal Inspection. No: Cyanosis, Edema Lower Extremity: Present: Normal Inspection. No: Edema Neurological: Present: GCS=15, CN II-XII Intact, Speech Normal, Motor Func Grossly Intact, Normal Sensory Function, Normal Cerebellar Funct, Norm Deep Tendon Reflexes, Gait Normal, Memory Normal, Normal 2Pt Descrimination Skin: Present: Warm, Dry, Normal Color. No: Rashes Psychiatric: Present: Alert, Oriented x 3, Normal Insight, Normal Concentration Medical Decision Making ED Course and Treatment: 04/18/17 07:42 Impression: 51 year old male with nausea, vomiting, and epigastric pain. Physical exam shows alcohol breath; normal neurological exam; abdomen non- tender. Differential Diagnosis included but are not limited to: Alcohol Intoxication vs. Alcohol Gastritis Plan: -- Labs -- Pepcid -- Zofran -- IV Fluids -- Blood Gas -- Reassess and disposition Prior Visits: Notes and results from previous visits were reviewed. Patient was last seen in the emergency department on 04/03/2017 for diffused abdominal pain and vomiting. Patient discharged home. Progress Notes: 04/18/17 9:[address] Moran to follow up IVF, reevaluate and disposition. - Lab Interpretations Lab Results: 04/18/17 08:15 04/18/17 08:15 Lab Results 04/18/17 09:50: pO2 177 H, VBG pH 7.45 H, VBG pCO2 39.0 L, VBG HCO3 27.1, VBG Total CO2 28.3 H, VBG O2 Sat (Calc) 99.8 H, VBG Base Excess 3.0 H, VBG Potassium 3.4 L, Sodium 140.0, Chloride 105.0, Glucose 133 H, Lactate 2.6 H, FiO2 21.0, Venous Blood Potassium 3.4 L 04/18/17 08:15: Sodium 140, Chloride 100, Potassium 3.6, Carbon Dioxide 28, Anion Gap 16, BUN 11, Creatinine 0.6 L, Est GFR ( Amer) > 60, Est GFR ( Non-Af Amer) > 60, Random Glucose 137 H, Calcium 8.7, Phosphorus 2.9, Magnesium 1.7, Total Bilirubin 1.0, AST 62 H D, ALT 44, Alkaline Phosphatase 102, Total Protein 7.8, Albumin 4.5, Globulin 3.4, Albumin/Globulin Ratio 1.3, Lipase 121 04/18/17 08:15: pO2 124 H, VBG pH 7.44 H, VBG pCO2 43.0, VBG HCO3 29.2 H, VBG Total CO2 30.5 H, VBG O2 Sat (Calc) 99.2 H, VBG Base Excess 4.4 H, VBG Potassium 3.6, Sodium 140.0, Chloride 101.0, Glucose 146 H, Lactate 3.1 H, FiO2 21.0, Venous Blood Potassium 3.6 04/18/17 08:15: WBC 3.8 L D, RBC 4.45, Hgb 14.2, Hct 40.9 L, MCV 91.9, MCH 31.9 , MCHC 34.7, RDW 13.5, Plt Count 344, MPV 9.2, Gran % 64.4, Lymph % (Auto) 27.5 , [place] % (Auto) 6.3 H, Eos % (Auto) 0.8 L, Baso % (Auto) 1.0, Gran # 2.46, Lymph # 1.1 L, [place] # 0.2, Eos # 0.0, Baso # 0.04 04/18/17 07:52: POC Glucose (mg/dL) 133 H I have reviewed the lab results: Yes - Medication Orders Current Medication Orders: Sodium Chloride (Sodium Chloride 0.9%) 1,000 mls @ 150 mls/hr IV .Q6H40M [facility] Last Admin: 04/18/17 08:00 Dose: 150 mls/hr eMAR Start Stop Document 04/18/17 08:00 KKL (Rec: 04/18/17 08:21 [id number]) Intravenous Solution Start Date 04/18/17 Start Time 08:05 End Date 04/18/17 End time 09:05 Total Infusion Time 60 Discontinued Medications Acetaminophen (Tylenol 325mg Tab) 650 mg PO STAT STA Stop: 04/18/17 10:11 Last Admin: 04/18/17 10:40 Dose: 650 mg MAR Pain/Vitals Document 04/18/17 10:40 KKL (Rec: 04/18/17 10:40 [id number] Pain Reassessment Is This A Pain ReAssessment? No Sleep Is patient sleeping during reassessment? No Presence of Pain Presence of Pain Yes Pain Scale Used Pain Scale Used Numeric Location Left, Right or Bilateral Right Upper or Lower Upper Pain Location Body Site Back Intensity 7 Scale Used Numeric Famotidine (Pepcid 20mg/50ml Premix) 20 mg in 50 mls @ 100 mls/hr IVPB STAT STA Stop: 04/18/17 08:20 Last Admin: 04/18/17 08:00 Dose: 100 mls/hr eMAR Start Stop Document 04/18/17 08:00 KKL (Rec: 04/18/17 08:21 [id number]) Intravenous Solution Start Date 04/18/17 Start Time 08:05 Sodium Chloride (Sodium Chloride 0.9%) 1,000 mls @ 999 mls/hr IV .Q1H1M STA Stop: 04/18/17 09:50 Last Admin: 04/18/17 09:20 Dose: 999 mls/hr eMAR Start Stop Document 04/18/17 09:20 KKL (Rec: 04/18/17 09:20 [id number]) Intravenous Solution Start Date 04/18/17 Start Time 09:20 Ondansetron HCl (Zofran Inj) 4 mg IVP STAT STA Stop: 04/18/17 07:50 Last Admin: 04/18/17 08:00 Dose: 4 mg IVP Administration Document 04/18/17 08:00 LAUREL (Rec: 04/18/17 08:20 KK [id number]) Charges for Administration # of IVP Administrations 1 - Scribe Statement The provider has reviewed the documentation as recorded by the Kike Higgins Provider Scribe Attestation: All medical record entries made by the Scribe were at my direction and personally dictated by me. I have reviewed the chart and agree that the record accurately reflects my personal performance of the history, physical exam, medical decision making, and the department course for this patient. I have also personally directed, reviewed, and agree with the discharge instructions and disposition. Disposition/Present on Arrival - Present on Arrival Any Indicators Present on Arrival: No History of DVT/PE: No History of Uncontrolled Diabetes: No Urinary Catheter: No History of Decub. Ulcer: No History Surgical Site Infection Following: None - Disposition Have Diagnosis and Disposition been Completed?: Yes Diagnosis: Alcoholic gastritis Disposition: HOME/ ROUTINE Disposition Time: 09:00 Patient Problems: Current Active Problems Problem Status Onset Alcoholic gastritis Acute Condition: GOOD Discharge Instructions (ExitCare): Abuse of Alcohol (ED) Additional Instructions: Thank you for letting us take care of you today. The emergency medical care you received today was directed at your acute symptoms. If you were prescribed any medication, please fill it and take as directed. It may take several days for your symptoms to resolve. Return to the Emergency Department if your symptoms worsen, do not improve, or if you have any other problems. Please contact your doctor or call one of the physicians/clinics you have been referred to that are listed on the Patient Visit Information form that is included in your discharge packet. Bring any paperwork you were given at discharge with you along with any medications you are taking to your follow up visit. Our treatment cannot replace ongoing medical care by a primary care provider (PCP) outside of the emergency department. Thank you for allowing the [facility] team to be part of your care today. Follow up with your doctor or the clinic for outpatient care. Referrals: [employer] [facility] [Outside] - Follow up with primary [facility] [place] [facility] - Follow up with primary Forms: [employer] ([place])
[2017-04-18] MEDS ORDERED: Famotidine 20mg/50ml 20 MG/50 ML BAG IVPB STA (07:51)
[2017-04-18] MEDS ORDERED: Sodium Chloride 0.9% 1,000 ML IV SCH (08:00)
[2017-04-18 08:25] LABS: BASO # 0.04 K/mm3 (0.0-2.0); EOS % 0.8 % (1.5-5.0); GRAN # 2.46 (1.4-6.5); GRAN % 64.4 % (50.0-68.0); HEMATOCRIT 40.9 % (42.0-52.0); LYMPH # 1.1 (1.2-3.4); LYMPH % 27.5 % (22.0-35.0); MEAN CELL VOLUME 91.9 fl (80.0-105.0); MEAN CORPUSCULAR HEMOGLOBIN 31.9 pg (25.0-35.0); MEAN CORPUSCULAR HGB CONC 34.7 g/dl (31.0-37.0); MEAN PLATELET VOLUME 9.2 fl (7.0-11.0); MONO # 0.2 (0.1-0.6); MONO % 6.3 % (1.0-6.0); RED CELL DISTRIBUTION WIDTH 13.5 % (11.5-14.5); WHITE BLOOD COUNT 3.8 10^3/ul (4.5-11.0)
[2017-04-18 08:47] LABS: VENOUS BLOOD GAS BASE EXCESS 4.4 mmol/L (0.0-2.0); VENOUS BLOOD PH 7.44 (7.32-7.43)
[2017-04-18 08:48] LABS: ALB/GLOB RATIO 1.3 (1.1-1.8); ALKALINE PHOSPHATASE 102 U/L (38-126); ALT/SGPT 44 U/L (7-56); AST/SGOT 62 U/L (17-59); BLOOD UREA NITROGEN 11 mg/dL (7-21); CALCIUM 8.7 mg/dL (8.4-10.5); CARBON DIOXIDE 28 mmol/L (21-33); CHLORIDE 100 mmol/L (98-107); GFR AFRICAN-AMERICAN > 60; GLUCOSE,RANDOM 137 mg/dL (70-110); LIPASE 121 U/L (23-300); MAGNESIUM 1.7 mg/dL (1.7-2.2); PHOSPHOROUS 2.9 mg/dL (2.5-4.5); POTASSIUM 3.6 mmol/L (3.6-5.0); SODIUM 140 mmol/L (132-148); TOTAL PROTEIN 7.8 g/dL (5.8-8.3)
[2017-04-18] MEDS ORDERED: Sodium Chloride 0.9% 1,000 ML IV STA (08:50)
--- NOTE | 2017-04-18 09:46 | ED PDOC ---
Physical Exam Vital Signs Reviewed: Yes Vital Signs Temp Pulse Resp BP Pulse Ox 04/18/17 09:30 98.3 F 80 18 128/78 98 04/18/17 06:21 98.3 F 81 16 118/85 97 Temperature: Afebrile Blood Pressure: Normal Pulse: Regular Respiratory Rate: Normal Appearance: Positive for: Well-Appearing Pain Distress: None Mental Status: Positive for: Alert and Oriented X 3 Finger Stick Blood Glucose: 133 Medical Decision Making ED Course and Treatment: 04/18/17 09:00 Patient transferred to [place] by Dr. Mccoy. Awaiting reevaluation and disposition. - Lab Interpretations Lab Results: 04/18/17 08:15 04/18/17 08:15 Lab Results 04/18/17 09:50: pO2 177 H, VBG pH 7.45 H, VBG pCO2 39.0 L, VBG HCO3 27.1, VBG Total CO2 28.3 H, VBG O2 Sat (Calc) 99.8 H, VBG Base Excess 3.0 H, VBG Potassium 3.4 L, Sodium 140.0, Chloride 105.0, Glucose 133 H, Lactate 2.6 H, FiO2 21.0, Venous Blood Potassium 3.4 L 04/18/17 08:15: Sodium 140, Chloride 100, Potassium 3.6, Carbon Dioxide 28, Anion Gap 16, BUN 11, Creatinine 0.6 L, Est GFR ( Amer) > 60, Est GFR ( Non-Af Amer) > 60, Random Glucose 137 H, Calcium 8.7, Phosphorus 2.9, Magnesium 1.7, Total Bilirubin 1.0, AST 62 H D, ALT 44, Alkaline Phosphatase 102, Total Protein 7.8, Albumin 4.5, Globulin 3.4, Albumin/Globulin Ratio 1.3, Lipase 121 04/18/17 08:15: pO2 124 H, VBG pH 7.44 H, VBG pCO2 43.0, VBG HCO3 29.2 H, VBG Total CO2 30.5 H, VBG O2 Sat (Calc) 99.2 H, VBG Base Excess 4.4 H, VBG Potassium 3.6, Sodium 140.0, Chloride 101.0, Glucose 146 H, Lactate 3.1 H, FiO2 21.0, Venous Blood Potassium 3.6 04/18/17 08:15: WBC 3.8 L D, RBC 4.45, Hgb 14.2, Hct 40.9 L, MCV 91.9, MCH 31.9 , MCHC 34.7, RDW 13.5, Plt Count 344, MPV 9.2, Gran % 64.4, Lymph % (Auto) 27.5 , [place] % (Auto) 6.3 H, Eos % (Auto) 0.8 L, Baso % (Auto) 1.0, Gran # 2.46, Lymph # 1.1 L, [place] # 0.2, Eos # 0.0, Baso # 0.04 04/18/17 07:52: POC Glucose (mg/dL) 133 H - Medication Orders Current Medication Orders: Discontinued Medications Acetaminophen (Tylenol 325mg Tab) 650 mg PO STAT STA Stop: 04/18/17 10:11 Last Admin: 04/18/17 10:40 Dose: 650 mg MAR Pain/Vitals Document 04/18/17 10:40 [facility] (Rec: 04/18/17 10:40 [id number] Pain Reassessment Is This A Pain ReAssessment? No Sleep Is patient sleeping during reassessment? No Presence of Pain Presence of Pain Yes Pain Scale Used Pain Scale Used Numeric Location Left, Right or Bilateral Right Upper or Lower Upper Pain Location Body Site Back Intensity 7 Scale Used Numeric Sodium Chloride (Sodium Chloride 0.9%) 1,000 mls @ 150 mls/hr IV .Q6H40M [facility] Last Admin: 04/18/17 08:00 Dose: 150 mls/hr eMAR Start Stop Document 04/18/17 08:00 KK (Rec: 04/18/17 08:21 [id number] Intravenous Solution Start Date 04/18/17 Start Time 08:05 End Date 04/18/17 End time 09:05 Total Infusion Time 60 Famotidine (Pepcid 20mg/50ml Premix) 20 mg in 50 mls @ 100 mls/hr IVPB STAT STA Stop: 04/18/17 08:20 Last Admin: 04/18/17 08:00 Dose: 100 mls/hr eMAR Start Stop Document 04/18/17 08:00 KK (Rec: 04/18/17 08:21 [id number]) Intravenous Solution Start Date 11/29/17 Start Time 08:05 Sodium Chloride (Sodium Chloride 0.9%) 1,000 mls @ 999 mls/hr IV .Q1H1M STA Stop: 04/18/17 09:50 Last Admin: 04/18/17 09:20 Dose: 999 mls/hr eMAR Start Stop Document 04/18/17 09:20 KKL (Rec: 04/18/17 09:20 KK [id number]) Intravenous Solution Start Date 04/18/17 Start Time 09:20 Ondansetron HCl (Zofran Inj) 4 mg IVP STAT STA Stop: 04/18/17 07:50 Last Admin: 04/18/17 08:00 Dose: 4 mg IVP Administration Document 04/18/17 08:00 KKL (Rec: 04/18/17 08:20 KK [id number]) Charges for Administration # of IVP Administrations 1 - Scribe Statement The provider has reviewed the documentation as recorded by the Kike Higgins Provider Scribe Attestation: All medical record entries made by the Clintibnorris were at my direction and personally dictated by me. I have reviewed the chart and agree that the record accurately reflects my personal performance of the history, physical exam, medical decision making, and the department course for this patient. I have also personally directed, reviewed, and agree with the discharge instructions and disposition. Disposition/Present on Arrival - Present on Arrival Any Indicators Present on Arrival: No History of DVT/PE: No History of Uncontrolled Diabetes: No Urinary Catheter: No History of Decub. Ulcer: No History Surgical Site Infection Following: None - Disposition Have Diagnosis and Disposition been Completed?: Yes Diagnosis: Alcoholic gastritis Disposition: HOME/ ROUTINE Disposition Time: 10:10 Condition: IMPROVED Discharge Instructions (ExitCare): Abuse of Alcohol (ED) Additional Instructions: Thank you for letting us take care of you today. The emergency medical care you received today was directed at your acute symptoms. If you were prescribed any medication, please fill it and take as directed. It may take several days for your symptoms to resolve. Return to the Emergency Department if your symptoms worsen, do not improve, or if you have any other problems. Please contact your doctor or call one of the physicians/clinics you have been referred to that are listed on the Patient Visit Information form that is included in your discharge packet. Bring any paperwork you were given at discharge with you along with any medications you are taking to your follow up visit. Our treatment cannot replace ongoing medical care by a primary care provider (PCP) outside of the emergency department. Thank you for allowing the [facility] team to be part of your care today. Follow up with your doctor or the clinic for outpatient care. Referrals: [employer] [facility] [Outside] - Follow up with primary [facility] [place] [facility] [place] - Follow up with primary Forms: [employer] (Yi)
[2017-04-18 09:57] LABS: VENOUS BLOOD PH 7.45 (7.32-7.43)
[2017-04-18 11:00] VITALS: BP 128/78; PULSE 80; RESP 18; O2SAT 98
== END 2017-04-18 11:03 | disposition home or self-care (01) ==
LOC: ED 06:18
DX: K29.20 Alcoholic gastritis without bleeding (principal); I10 Essential (primary) hypertension; E11.40 Type 2 diabetes mellitus with diabetic neuropathy, unspecified; Z79.4 Long term (current) use of insulin
CPT/HCPCS: 80053; 82803; 82948; 83690; 83735; 84100; 85025; 96361; 96374; 96375; 99284; J2405; J7040

== ENCOUNTER 2017-06-21 11:54 | Emergency (ER) | payer OTHER ==
[2017-06-21 12:07] VITALS: BMI 25.7
[2017-06-21 12:13] VITALS: TEMP 98.9
[2017-06-21 13:26] LABS: BASO # 0.04 K/mm3 (0.0-2.0); EOS % 0.5 % (1.5-5.0); GRAN # 2.29 (1.4-6.5); GRAN % 59.3 % (50.0-68.0); HEMOGLOBIN 14.9 g/dL (14.0-18.0); LYMPH # 1.2 (1.2-3.4); MEAN CELL VOLUME 92.1 fl (80.0-105.0); MEAN CORPUSCULAR HEMOGLOBIN 32.6 pg (25.0-35.0); MEAN CORPUSCULAR HGB CONC 35.4 g/dl (31.0-37.0); MEAN PLATELET VOLUME 9.8 fl (7.0-11.0); MONO # 0.3 (0.1-0.6); MONO % 7.2 % (1.0-6.0); RBC 4.57 10^6/uL (3.5-6.1); RED CELL DISTRIBUTION WIDTH 13.7 % (11.5-14.5); WHITE BLOOD COUNT 3.9 10^3/ul (4.5-11.0)
[2017-06-21 13:29] LABS: ALB/GLOB RATIO 1.2 (1.1-1.8); ALBUMIN 4.2 g/dL (3.0-4.8); ALT/SGPT 279 U/L (7-56); AST/SGOT 386 U/L (17-59); BLOOD UREA NITROGEN 14 mg/dL (7-21); CALCIUM 8.7 mg/dL (8.4-10.5); GFR AFRICAN-AMERICAN > 60; GFR NON-AFRICAN AMERICAN > 60
--- NOTE | 2017-06-21 13:50 | ED PDOC ---
Arrival/HPI - General Chief Complaint: Back Pain Time Seen by Provider: 06/21/17 12:18 Past Medical History - Infectious Disease Hx of Infectious Diseases: None - Tetanus Immunization Tetanus Immunization: Unknown - Cardiac Hx Cardiac Disorders: Yes Hx Hypertension: Yes - Pulmonary Hx Respiratory Disorders: No - Neurological Hx Neurological Disorder: No - HEENT Hx HEENT Disorder: Yes Hx Cataracts: Yes (bilateral sx) - Renal Hx Renal Disorder: No - Endocrine/Metabolic Hx Endocrine Disorders: Yes Hx Diabetes Mellitus Type 2: Yes (niddm) - Hematological/Oncological Hx Blood Disorders: No - Integumentary Hx Dermatological Disorder: No - Musculoskeletal/Rheumatological Hx Falls: Yes - Gastrointestinal Hx Gastrointestinal Disorders: No - Genitourinary/Gynecological Hx Genitourinary Disorders: Yes Hx Prostate Problems: Yes - Psychiatric Hx Psychophysiologic Disorder: Yes (eoh abuse) Hx Substance Use: No - Past Surgical History Past Surgical History: No Previous - Surgical History Hx Appendectomy: No Hx Cholecystectomy: No - Anesthesia Hx Anesthesia: No - Suicidal Assessment Feels Threatened In Home Enviroment: No Family/Social History Smoking Status: Never Smoked Hx Alcohol Use: Yes Hx Substance Use: No Hx Substance Use Treatment: No Allergies/Home Meds Allergies/Adverse Reactions: Allergies No Known Allergies Allergy (Verified 04/18/17 06:23) Home Medications: Home Meds Medication Instructions Recorded Confirmed Insulin Detemir [Levemir] 10 unit SUBCUT DAILY 03/17/17 06/21/17 metFORMIN [glucOPHAGE] 875 mg PO BID 06/21/17 06/21/17 Physical Exam Vital Signs Temp Pulse Resp BP Pulse Ox 06/21/17 12:13 98.9 F 95 H 18 145/85 95 Medical Decision Making - Lab Interpretations Lab Results: 06/21/17 13:10 06/21/17 13:10 Lab Results 06/21/17 13:10: Sodium 140, Potassium 3.8, Chloride 101, Carbon Dioxide 24, Anion Gap 19, BUN 14, Creatinine 0.7 L, Est GFR ( Amer) > 60, Est GFR ( Non-Af Amer) > 60, Random Glucose 112 H, Calcium 8.7, Total Bilirubin 1.6 H, AST 386 H D, ALT 279 H, Alkaline Phosphatase 103, Total Protein 7.7, Albumin 4.2 , Globulin 3.5, Albumin/Globulin Ratio 1.2 06/21/17 13:10: WBC 3.9 L, RBC 4.57, Hgb 14.9, Hct 42.1, MCV 92.1, MCH 32.6, MCHC 35.4, RDW 13.7, Plt Count 229, MPV 9.8, Gran % 59.3, Lymph % (Auto) 32.0, [place] % (Auto) 7.2 H, Eos % (Auto) 0.5 L, Baso % (Auto) 1.0, Gran # 2.29, Lymph # (Auto) 1.2, [place] # (Auto) 0.3, Eos # (Auto) 0.0, Baso # (Auto) 0.04 06/21/17 12:20: POC Glucose (mg/dL) 120 H - Medication Orders Current Medication Orders: Discontinued Medications Ketorolac Tromethamine (Toradol) 60 mg IM STAT STA Stop: 06/21/17 12:40 Last Admin: 06/21/17 13:09 Dose: 60 mg MAR Pain Assessment Document 06/21/17 13:09 [place] (Rec: 06/21/17 13:09 [place] [id number]) Pain Reassessment Is this a pain reassessment? No IM Administration Charges Document 06/21/17 13:09 [place] (Rec: 06/21/17 13:09 [id number]) Charges for Administration # of IM Administrations 1 Disposition/Present on Arrival - Present on Arrival Any Indicators Present on Arrival: No History of DVT/PE: No History of Uncontrolled Diabetes: No Urinary Catheter: No History of Decub. Ulcer: No History Surgical Site Infection Following: None - Disposition Have Diagnosis and Disposition been Completed?: Yes Diagnosis: Muscle spasm, Diabetes mellitus type 2 Disposition: HOME/ ROUTINE Disposition Time: 14:00 Patient Plan: Discharge Condition: STABLE Prescriptions: Insulin Detemir [Levemir] 10 units SC DAILY #1 vial Methocarbamol [Robaxin] 750 mg PO TID PRN #20 tab PRN Reason: Pain, Moderate (4-7) Referrals: Edson Tony, [Primary Care Provider] - Follow up with primary Forms: [employer] (Azeri)
--- NOTE | 2017-06-21 13:53 | ED PDOC ---
Arrival/HPI - General Chief Complaint: Back Pain Time Seen by Provider: 06/21/17 12:18 Historian: Patient - History of Present Illness Narrative History of Present Illness (Text): 06/21/17 13:00 Miguel Garcia is a 52 Year old male, whose past medical history include hypertension and diabetes, who presents to the Emergency department complaining of bilateral leg pain since one day ago. Patient describes the pain as a "crispin horse" sensation and notes this has happened to him before about 2 months ago (x3 episodes). Additionally, patient states feeling numbness and weakness on feet and his last meal was 5 days ago. No other complaints were made. Time/Duration: 24 hours Symptom Onset: Sudden Symptom Course: Unchanged Past Medical History - Provider Review Nursing Documentation Reviewed: Yes - Infectious Disease Hx of Infectious Diseases: None - Tetanus Immunization Tetanus Immunization: Unknown - Cardiac Hx Cardiac Disorders: Yes Hx Hypertension: Yes - Pulmonary Hx Respiratory Disorders: No - Neurological Hx Neurological Disorder: No - HEENT Hx HEENT Disorder: Yes Hx Cataracts: Yes (bilateral sx) - Renal Hx Renal Disorder: No - Endocrine/Metabolic Hx Endocrine Disorders: Yes Hx Diabetes Mellitus Type 2: Yes (niddm) - Hematological/Oncological Hx Blood Disorders: No - Integumentary Hx Dermatological Disorder: No - Musculoskeletal/Rheumatological Hx Falls: Yes - Gastrointestinal Hx Gastrointestinal Disorders: No - Genitourinary/Gynecological Hx Genitourinary Disorders: Yes Hx Prostate Problems: Yes - Psychiatric Hx Psychophysiologic Disorder: Yes (eoh abuse) Hx Substance Use: No - Past Surgical History Past Surgical History: No Previous - Surgical History Hx Appendectomy: No Hx Cholecystectomy: No - Anesthesia Hx Anesthesia: No - Suicidal Assessment Feels Threatened In Home Enviroment: No Family/Social History - Physician Review Nursing Documentation Reviewed: Yes Family/Social History: Unknown Family HX Smoking Status: Never Smoked Hx Alcohol Use: Yes Hx Substance Use: No Hx Substance Use Treatment: No Allergies/Home Meds Allergies/Adverse Reactions: Allergies No Known Allergies Allergy (Verified 04/18/17 06:23) Home Medications: Home Meds Medication Instructions Recorded Confirmed Insulin Detemir [Levemir] 10 unit SUBCUT DAILY 03/17/17 06/21/17 metFORMIN [glucOPHAGE] 875 mg PO BID 06/21/17 06/21/17 Review of Systems - Physician Review All systems were reviewed & negative as marked: Yes - Review of Systems Constitutional: absent: Fevers Respiratory: absent: SOB Musculoskeletal: Other (bilateral leg pain ) Neurological: Other (weakness and numbness on feet) Physical Exam Vital Signs Reviewed: Yes Vital Signs Temp Pulse Resp BP Pulse Ox 06/21/17 12:13 98.9 F 95 H 18 145/85 95 Temperature: Afebrile Blood Pressure: Normal Pulse: Tachycardic Respiratory Rate: Normal Appearance: Positive for: Well-Appearing, Non-Toxic, Comfortable Pain Distress: None Mental Status: Positive for: Alert and Oriented X 3 - Systems Exam Head: Present: Atraumatic, Normocephalic Pupils: Present: PERRL Extroacular Muscles: Present: EOMI Conjunctiva: Present: Normal Mouth: Present: Moist Mucous Membranes Respiratory/Chest: Present: Clear to Auscultation, Good Air Exchange. No: Respiratory Distress, Accessory Muscle Use, Wheezes, Rhonchi Cardiovascular: Present: Regular Rate and Rhythm, Normal S1, S2. No: Murmurs Abdomen: Present: Normal Bowel Sounds. No: Tenderness, Distention, Peritoneal Signs, Guarding Upper Extremity: Present: Normal Inspection, Normal ROM, NORMAL PULSES, Neurovascularly Intact, Capillary Refill < 2s. No: Cyanosis, Edema, Tenderness , Swelling, Erythema, Deformity Lower Extremity: Present: Normal Inspection, NORMAL PULSES, Normal ROM, Neurovascularly Intact, Capillary Refill < 2 s. No: Edema, Cyanosis, Tenderness , Swelling, Erythema, Deformity Neurological: Present: GCS=15, CN II-XII Intact, Speech Normal Skin: Present: Warm, Dry, Normal Color. No: Rashes Psychiatric: Present: Alert, Oriented x 3, Normal Insight, Normal Concentration Medical Decision Making ED Course and Treatment: 06/21/17 Impression: 52 Year old male with unremarkable physical exam Complaining of bilateral leg pain with numbness and weakness on feet. Plan: -- Labs -- Toradol -- Reassess and disposition Progress Notes: - Lab Interpretations Lab Results: 06/21/17 13:10 06/21/17 13:10 Lab Results 06/21/17 13:10: Sodium 140, Potassium 3.8, Chloride 101, Carbon Dioxide 24, Anion Gap 19, BUN 14, Creatinine 0.7 L, Est GFR ( Amer) > 60, Est GFR ( Non-Af Amer) > 60, Random Glucose 112 H, Calcium 8.7, Total Bilirubin 1.6 H, AST 386 H D, ALT 279 H, Alkaline Phosphatase 103, Total Protein 7.7, Albumin 4.2 , Globulin 3.5, Albumin/Globulin Ratio 1.2 06/21/17 13:10: WBC 3.9 L, RBC 4.57, Hgb 14.9, Hct 42.1, MCV 92.1, MCH 32.6, MCHC 35.4, RDW 13.7, Plt Count 229, MPV 9.8, Gran % 59.3, Lymph % (Auto) 32.0, [place] % (Auto) 7.2 H, Eos % (Auto) 0.5 L, Baso % (Auto) 1.0, Gran # 2.29, Lymph # (Auto) 1.2, [place] # (Auto) 0.3, Eos # (Auto) 0.0, Baso # (Auto) 0.04 06/21/17 12:20: POC Glucose (mg/dL) 120 H I have reviewed the lab results: Yes - Medication Orders Current Medication Orders: Discontinued Medications Ketorolac Tromethamine (Toradol) 60 mg IM STAT STA Stop: 06/21/17 12:40 Last Admin: 06/21/17 13:09 Dose: 60 mg MAR Pain Assessment Document 06/21/17 13:09 PR (Rec: 06/21/17 13:09 PR [id number]) Pain Reassessment Is this a pain reassessment? No IM Administration Charges Document 06/21/17 13:09 PR (Rec: 06/21/17 13:09 PR [id number]) Charges for Administration # of IM Administrations 1 - Scribe Statement The provider has reviewed the documentation as recorded by the Clintibe Carissa Herman Provider Scribe Attestation: All medical record entries made by the Scribnorris were at my direction and personally dictated by me. I have reviewed the chart and agree that the record accurately reflects my personal performance of the history, physical exam, medical decision making, and the department course for this patient. I have also personally directed, reviewed, and agree with the discharge instructions and disposition. Disposition/Present on Arrival - Present on Arrival Any Indicators Present on Arrival: No History of DVT/PE: No History of Uncontrolled Diabetes: No Urinary Catheter: No History of Decub. Ulcer: No History Surgical Site Infection Following: None - Disposition Have Diagnosis and Disposition been Completed?: Yes Diagnosis: Muscle spasm, Diabetes mellitus type 2 Disposition: HOME/ ROUTINE Disposition Time: 14:00 Patient Plan: Discharge Condition: STABLE Prescriptions: Insulin Detemir [Levemir] 10 units SC DAILY #1 vial Methocarbamol [Robaxin] 750 mg PO TID PRN #20 tab PRN Reason: Pain, Moderate (4-7) Referrals: Edson Tony, [Primary Care Provider] - Follow up with primary Forms: [employer] (Yi)
[2017-06-21 14:03] VITALS: BP 142/71; PULSE 89; RESP 16; O2SAT 100
== END 2017-06-21 14:04 | disposition home or self-care (01) ==
LOC: ED 11:54
DX: E11.9 Type 2 diabetes mellitus without complications (principal); I10 Essential (primary) hypertension; M62.838 Other muscle spasm
CPT/HCPCS: 80053; 82948; 85025; 96372; 99283; J1885

== ENCOUNTER 2017-07-03 21:43 | Emergency (ER) | payer OTHER ==
[2017-07-03 21:43] VITALS: BMI 25.7
[2017-07-03 23:06] VITALS: TEMP 97.9
--- NOTE | 2017-07-03 23:26 | ED PDOC ---
Arrival/HPI - General Chief Complaint: Lower Extremity Problem/Injury Time Seen by Provider: 07/03/17 23:17 Historian: Patient - History of Present Illness Narrative History of Present Illness (Text): 07/03/17 23:23 Miguel Garcia is a 52 year old male, whose past medical history includes hypertension, diabetes mellitus, and alcohol abuse, presents to the emergency department complaining of lower extremity muscle cramps. Patient has experienced a history of similar muscle cramps in the past. Patient denies any calf pain, fever, chills, chest pain, shortness of breath, nausea, vomiting, diarrhea, back pain, neck pain, headache, dizziness, or any other complaints. Time/Duration: Other (tonight) Symptom Onset: Gradual Symptom Course: Unchanged Activities at Onset: Light Context: Home Past Medical History - Provider Review Nursing Documentation Reviewed: Yes - Infectious Disease Hx of Infectious Diseases: None - Tetanus Immunization Tetanus Immunization: Unknown - Cardiac Hx Cardiac Disorders: Yes Hx Hypertension: Yes - Pulmonary Hx Respiratory Disorders: No - Neurological Hx Neurological Disorder: No - HEENT Hx HEENT Disorder: Yes Hx Cataracts: Yes (bilateral sx) - Renal Hx Renal Disorder: No - Endocrine/Metabolic Hx Endocrine Disorders: Yes Hx Diabetes Mellitus Type 2: Yes (niddm) - Hematological/Oncological Hx Blood Disorders: No - Integumentary Hx Dermatological Disorder: No - Musculoskeletal/Rheumatological Hx Falls: Yes - Gastrointestinal Hx Gastrointestinal Disorders: No - Genitourinary/Gynecological Hx Genitourinary Disorders: Yes Hx Prostate Problems: Yes - Psychiatric Hx Psychophysiologic Disorder: Yes (etoh abuse) Hx Substance Use: No - Past Surgical History Past Surgical History: No Previous - Surgical History Hx Appendectomy: No Hx Cholecystectomy: No - Anesthesia Hx Anesthesia: No - Suicidal Assessment Feels Threatened In Home Enviroment: No Family/Social History - Physician Review Nursing Documentation Reviewed: Yes Family/Social History: Unknown Family HX Smoking Status: Never Smoked Hx Alcohol Use: Yes Frequency of alcohol use: Daily Hx Substance Use: No Hx Substance Use Treatment: No Allergies/Home Meds Allergies/Adverse Reactions: Allergies No Known Allergies Allergy (Verified 07/03/17 23:06) Review of Systems - Physician Review All systems were reviewed & negative as marked: Yes - Review of Systems Constitutional: Normal Eyes: Normal ENT: Normal Respiratory: Normal. absent: SOB, Cough Cardiovascular: Normal. absent: Chest Pain, Palpitations Gastrointestinal: Normal. absent: Abdominal Pain, Diarrhea, Nausea, Vomiting Genitourinary Male: Normal. absent: Dysuria, Frequency, Hematuria, Urinary Output Changes (lower extremity muscle cramps) Musculoskeletal: Other (+lower extremity muscle cramps). absent: Back Pain, Neck Pain Skin: Normal. absent: Rash Neurological: Normal. absent: Headache, Dizziness Endocrine: Normal Hemo/Lymphatic: Normal Psychiatric: Normal Physical Exam Vital Signs Reviewed: Yes Vital Signs Temp Pulse Resp BP Pulse Ox 07/03/17 23:03 97.9 F 88 18 147/91 H 96 Temperature: Afebrile Blood Pressure: Normal Pulse: Regular Respiratory Rate: Normal Appearance: Positive for: Well-Appearing, Non-Toxic, Comfortable Pain Distress: None Mental Status: Positive for: Alert and Oriented X 3 Finger Stick Blood Glucose: 236 - Systems Exam Head: Present: Atraumatic, Normocephalic Pupils: Present: PERRL Extroacular Muscles: Present: EOMI Conjunctiva: Present: Normal Mouth: Present: Moist Mucous Membranes Neck: Present: Normal Range of Motion Respiratory/Chest: Present: Clear to Auscultation, Good Air Exchange. No: Respiratory Distress, Accessory Muscle Use Cardiovascular: Present: Regular Rate and Rhythm, Normal S1, S2. No: Murmurs Abdomen: Present: Normal Bowel Sounds. No: Tenderness, Distention, Peritoneal Signs Back: Present: Normal Inspection Upper Extremity: Present: Normal Inspection. No: Cyanosis, Edema Lower Extremity: Present: Normal Inspection. No: Edema Neurological: Present: GCS=15, CN II-XII Intact, Speech Normal Skin: Present: Warm, Dry, Normal Color. No: Rashes Psychiatric: Present: Alert, Oriented x 3, Normal Insight, Normal Concentration Medical Decision Making ED Course and Treatment: 07/03/17 23:31 Impression: 52 year old male presents to the emergency department with lower extremity muscle cramps Plan: -- Flexeril -- Toradol -- Reassess and disposition Progress Notes: 07/04/17 03:42 On re-evaluation, patient feels better and is in no acute distress. I have discussed the results and plan with the patient, who expresses understanding. Patient in agreement with plan to be discharged home. Patient is stable for discharge. Patient was instructed to follow up with physician or return if symptoms worsen or new concerning symptoms arise. - Medication Orders Current Medication Orders: Discontinued Medications Cyclobenzaprine HCl (Flexeril) 10 mg PO ONCE ONE Stop: 07/03/17 23:26 Last Admin: 07/03/17 23:38 Dose: 10 mg Ketorolac Tromethamine (Toradol) 60 mg IM ONCE ONE Stop: 07/03/17 23:26 Last Admin: 07/03/17 23:39 Dose: 60 mg MAR Pain Assessment Document 07/03/17 23:39 RD (Rec: 07/03/17 23:39 RD [id number]) Pain Reassessment Is this a pain reassessment? No Sleep Is patient sleeping during reassessment? No Presence of Pain Presence of Pain Yes IM Administration Charges Document 07/03/17 23:39 RD (Rec: 07/03/17 23:39 RD [id number]) Injection Site MAR Injection Site Right Deltoid Charges for Administration # of IM Administrations 1 - Scribe Statement The provider has reviewed the documentation as recorded by the Kike Reed training under Tessie Chen All medical record entries made by the Kike were at my direction and personally dictated by me. I have reviewed the chart and agree that the record accurately reflects my personal performance of the history, physical exam, medical decision making, and the department course for this patient. I have also personally directed, reviewed, and agree with the discharge instructions and disposition. Disposition/Present on Arrival - Present on Arrival Any Indicators Present on Arrival: No History of DVT/PE: No History of Uncontrolled Diabetes: No Urinary Catheter: No History of Decub. Ulcer: No History Surgical Site Infection Following: None - Disposition Have Diagnosis and Disposition been Completed?: Yes Diagnosis: Leg muscle spasm Disposition: HOME/ ROUTINE Disposition Time: 03:37 Patient Plan: Discharge Patient Problems: Current Active Problems Problem Status Onset Leg muscle spasm Acute Condition: GOOD Discharge Instructions (ExitCare): Leg Cramps (ED), Muscle Spasm (ED) Additional Instructions: Take meds as prescribed/follow up with your doctor this week Prescriptions: Cyclobenzaprine [Cyclobenzaprine HCl] 10 mg PO TID PRN #15 tab PRN Reason: Muscle Spasm Naproxen [Naprosyn] 500 mg PO BID PRN #14 tab PRN Reason: Pain Forms: [employer] (Polish)
[2017-07-04 04:20] VITALS: BP 139/78; PULSE 80; RESP 17; O2SAT 97
== END 2017-07-04 04:10 | disposition home or self-care (01) ==
LOC: ED 21:43
DX: M62.831 Muscle spasm of calf (principal)
CPT/HCPCS: 96372; 99284; J1885

== ENCOUNTER 2017-09-12 00:31 | Emergency (ER) | payer OTHER ==
[2017-09-12 00:37] VITALS: BMI 27.4
--- NOTE | 2017-09-12 02:07 | ED PDOC ---
Arrival/HPI - General Chief Complaint: Alcohol Ingestion Time Seen by Provider: 09/12/17 01:00 Historian: Patient - History of Present Illness Narrative History of Present Illness (Text): 09/12/17 02:00 Miguel Garcia is a 52 year old male, whose past medical history includes hypertension, diabetes mellitus, and alcohol abuse, presents to the emergency department complaining of bilateral lower extremity thigh discomfort. Patient has experienced a history of similar discomfort in the past and notes he has been walking a lot. Patient also reports chest pain. Patient denies any calf pain, fever, chills, shortness of breath, nausea, vomiting, diarrhea, back pain , neck pain, headache, dizziness, or any other complaints. Symptom Onset: Gradual Symptom Course: Unchanged Activities at Onset: Light Context: Walking Past Medical History - Provider Review Nursing Documentation Reviewed: Yes - Infectious Disease Hx of Infectious Diseases: None - Tetanus Immunization Tetanus Immunization: Unknown - Cardiac Hx Cardiac Disorders: Yes Hx Hypertension: Yes - Pulmonary Hx Respiratory Disorders: No - Neurological Hx Neurological Disorder: No - HEENT Hx HEENT Disorder: Yes Hx Cataracts: Yes (bilateral sx) - Renal Hx Renal Disorder: No - Endocrine/Metabolic Hx Endocrine Disorders: Yes Hx Diabetes Mellitus Type 2: Yes (niddm) - Hematological/Oncological Hx Blood Disorders: No - Integumentary Hx Dermatological Disorder: No - Musculoskeletal/Rheumatological Hx Falls: Yes - Gastrointestinal Hx Gastrointestinal Disorders: No - Genitourinary/Gynecological Hx Genitourinary Disorders: Yes Hx Prostate Problems: Yes - Psychiatric Hx Psychophysiologic Disorder: Yes (etoh abuse) Hx Substance Use: No - Past Surgical History Past Surgical History: No Previous - Surgical History Hx Appendectomy: No Hx Cholecystectomy: No - Anesthesia Hx Anesthesia: No - Suicidal Assessment Feels Threatened In Home Enviroment: No Family/Social History - Physician Review Nursing Documentation Reviewed: Yes Family/Social History: Unknown Family HX Smoking Status: Never Smoked Hx Alcohol Use: Yes Frequency of alcohol use: Daily Hx Substance Use: No Hx Substance Use Treatment: No Allergies/Home Meds Allergies/Adverse Reactions: Allergies No Known Allergies Allergy (Verified 07/03/17 23:06) Review of Systems - Physician Review All systems were reviewed & negative as marked: Yes - Review of Systems Constitutional: Normal. absent: Fevers Eyes: Normal ENT: Normal Respiratory: Normal. absent: SOB, Cough Cardiovascular: Chest Pain Gastrointestinal: Normal. absent: Abdominal Pain Genitourinary Male: Normal Musculoskeletal: Other (+bilateral lower extremity discomfort). absent: Back Pain, Neck Pain Skin: Normal. absent: Rash Neurological: Normal. absent: Headache, Dizziness Endocrine: Normal Hemo/Lymphatic: Normal Psychiatric: Normal Physical Exam Vital Signs Reviewed: Yes Vital Signs Pulse Resp BP Pulse Ox 09/12/17 06:06 93 H 20 128/75 97 Temperature: Afebrile Blood Pressure: Normal Pulse: Regular Respiratory Rate: Normal Appearance: Positive for: Well-Appearing, Non-Toxic, Comfortable Pain Distress: None Mental Status: Positive for: Alert and Oriented X 3 - Systems Exam Head: Present: Atraumatic, Normocephalic Pupils: Present: PERRL Extroacular Muscles: Present: EOMI Conjunctiva: Present: Normal Mouth: Present: Moist Mucous Membranes Neck: Present: Normal Range of Motion Respiratory/Chest: Present: Clear to Auscultation, Good Air Exchange. No: Respiratory Distress, Accessory Muscle Use Cardiovascular: Present: Regular Rate and Rhythm, Normal S1, S2. No: Murmurs Abdomen: No: Tenderness, Distention, Peritoneal Signs Back: Present: Normal Inspection Upper Extremity: Present: Normal Inspection. No: Cyanosis, Edema Lower Extremity: Present: Normal Inspection. No: Edema Neurological: Present: GCS=15, CN II-XII Intact, Speech Normal Skin: Present: Warm, Dry, Normal Color. No: Rashes Psychiatric: Present: Alert, Oriented x 3, Normal Insight, Normal Concentration Medical Decision Making ED Course and Treatment: 09/12/17 02:00 Impression: 52 year old male complaining of bilateral lower extremity discomfort and chest pain. Plan: -- EKG -- Chest X-ray -- Labs, cardiac enzymes, alcohol level -- UA -- Reassess and disposition Progress Notes: reviewed EKG, sinus tachycardia at [address]-segment elevations or depressions, no T-wave inversions. 09/12/17 04:37 CXR reviewed, shows no acute processes. - Lab Interpretations Lab Results: 09/12/17 02:45 09/12/17 02:45 Lab Results 09/12/17 06:01: POC Glucose (mg/dL) 103 09/12/17 03:23: Urine Color Dark yellow, Urine Appearance Cloudy, Urine pH 6.5, Ur Specific [place] 1.025, Urine Protein 100 H, Urine Glucose (UA) Negative, Urine Ketones 40 H, Urine Blood Moderate H, Urine Nitrate Positive H, Urine Bilirubin Negative, Urine Urobilinogen 2.0 H, Ur Leukocyte Esterase Negative, Urine RBC 2 - 5, Urine WBC Negative, Ur Epithelial Cells 3 - 4, Urine Bacteria Large, Urine Other Mucus 09/12/17 03:07: POC Glucose (mg/dL) 137 H 09/12/17 02:45: Alcohol, Quantitative 178 H 09/12/17 02:45: Sodium 136, Potassium 3.6, Chloride 94 L, Carbon Dioxide 22, Anion Gap 24 H, BUN 11, Creatinine 0.7 L, Est GFR ( Amer) > 60, Est GFR ( Non-Af Amer) > 60, Random Glucose 154 H, Calcium 8.6, Magnesium 1.7, Total Bilirubin 1.4 H, AST 84 H D, ALT 46, Alkaline Phosphatase 121, Lactate Dehydrogenase 668, Total Creatine Kinase 1195 H, CK-MB (CK-2) 18.8 H, CK-MB (CK- 2) % 1.6 L, Troponin I < 0.01, Total Protein 7.8, Albumin 4.6, Globulin 3.2, Albumin/Globulin Ratio 1.4 09/12/17 02:45: WBC 7.5 D, RBC 4.36, Hgb 13.4 L, Hct 38.0 L, MCV 87.2 D, MCH 30.7, MCHC 35.3, RDW 13.0, Plt Count 200, MPV 9.3, Gran % 83.6 H, Lymph % (Auto ) 10.8 L, [place] % (Auto) 5.1, Eos % (Auto) 0.4 L, Baso % (Auto) 0.1, Gran # 6.26 , Lymph # (Auto) 0.8 L, [place] # (Auto) 0.4, Eos # (Auto) 0.0, Baso # (Auto) 0.01 I have reviewed the lab results: Yes - RAD Interpretation Radiology Orders: 09/12/17 02:03 CHEST PORTABLE [RAD] Stat [employer] Wms Consultant: ED Physician - EKG Interpretation Interpreted by ED Physician: Yes Type: 12 lead EKG - Medication Orders Current Medication Orders: Discontinued Medications Chlordiazepoxide (Librium) 25 mg PO STAT STA PRN Reason: Protocol Stop: 09/12/17 06:48 Last Admin: 09/12/17 06:54 Dose: 25 mg Sodium Chloride (Sodium Chloride 0.9%) 1,000 mls @ 1,000 mls/hr IV .Q1H WALLY Last Admin: 09/12/17 03:36 Dose: 1,000 mls/hr eMAR Start Stop Document 09/12/17 03:36 LA (Rec: 09/12/17 03:37 LA [id number]) Intravenous Solution Start Date 09/12/17 Start Time 03:36 End Date 09/12/17 End time 04:36 Total Infusion Time 60 Ketorolac Tromethamine (Toradol) 30 mg IVP ONCE ONE Stop: 09/12/17 03:01 Last Admin: 09/12/17 03:37 Dose: 30 mg MAR Pain Assessment Document 09/12/17 03:37 LA (Rec: 09/12/17 03:37 LA [id number]) Pain Reassessment Is this a pain reassessment? No Sleep Is patient sleeping during reassessment? No Presence of Pain Presence of Pain Yes Pain Scale Used Pain Scale Used Numeric Location Left, Right or Bilateral Bilateral Upper or Lower Lower Description Description Intermittent Intensity of Pain at present 7 Pain Behavior Guarding IVP Administration Document 09/12/17 03:37 LA (Rec: 09/12/17 03:37 LA [id number]) Charges for Administration # of IVP Administrations 1 Ondansetron HCl (Zofran Inj) 8 mg IVP STAT STA Stop: 09/12/17 06:47 Last Admin: 09/12/17 06:55 Dose: 8 mg IVP Administration Document 09/12/17 06:55 SS (Rec: 09/12/17 06:55 SS [id number]) Charges for Administration # of IVP Administrations 1 Pantoprazole Sodium (Protonix Inj) 40 mg IVP ONCE STA Stop: 09/12/17 03:01 Last Admin: 09/12/17 03:33 Dose: 40 mg IVP Administration Document 09/12/17 03:33 LA (Rec: 09/12/17 03:36 LA [id number]) Charges for Administration # of IVP Administrations 1 - Scribe Statement The provider has reviewed the documentation as recorded by the Scribnorris Chen All medical record entries made by the Scribe were at my direction and personally dictated by me. I have reviewed the chart and agree that the record accurately reflects my personal performance of the history, physical exam, medical decision making, and the department course for this patient. I have also personally directed, reviewed, and agree with the discharge instructions and disposition. Disposition/Present on Arrival - Present on Arrival Any Indicators Present on Arrival: No History of DVT/PE: No History of Uncontrolled Diabetes: No Urinary Catheter: No History of Decub. Ulcer: No History Surgical Site Infection Following: None - Disposition Have Diagnosis and Disposition been Completed?: Yes Diagnosis: Chest pain, Alcohol abuse Disposition: HOME/ ROUTINE Disposition Time: 06:30 Condition: IMPROVED Discharge Instructions (ExitCare): Chest Pain That Is Not Caused by the Heart ( DC), Alcohol Abuse and Alcoholism (DC), Chest Pain (ED) Forms: [facility] [employer] (Georgian)
[2017-09-12] MEDS ORDERED: Sodium Chloride 0.9% 1,000 ML IV SCH (03:00)
[2017-09-12 03:23] LABS: BASO # 0.01 K/mm3 (0.0-2.0); BASO % 0.1 % (0.0-3.0); EOS % 0.4 % (1.5-5.0); GRAN # 6.26 (1.4-6.5); GRAN % 83.6 % (50.0-68.0); HEMOGLOBIN 13.4 g/dL (14.0-18.0); LYMPH # 0.8 (1.2-3.4); LYMPH % 10.8 % (22.0-35.0); MEAN CORPUSCULAR HEMOGLOBIN 30.7 pg (25.0-35.0); MEAN CORPUSCULAR HGB CONC 35.3 g/dl (31.0-37.0); MEAN PLATELET VOLUME 9.3 fl (7.0-11.0); MONO # 0.4 (0.1-0.6); MONO % 5.1 % (1.0-6.0); RBC 4.36 10^6/uL (3.5-6.1)
[2017-09-12 03:26] LABS: MEAN CELL VOLUME 87.2 fl (80.0-105.0); WHITE BLOOD COUNT 7.5 10^3/ul (4.5-11.0)
[2017-09-12 03:47] LABS: PH,URINE 6.5 (4.7-8.0); URINE BILIRUBIN NEGATIVE (NEGATIVE); URINE BLOOD MODERATE (NEGATIVE); URINE GLUCOSE (UA) NEGATIVE (NEGATIVE); URINE LEUKOCYTE ESTERASE NEGATIVE Leu/uL (NEGATIVE); URINE PROTEIN 100 mg/dL (<30 mg/dL)
[2017-09-12 03:52] LABS: URINE APPEARANCE CLOUDY (CLEAR); URINE COLOR DARK YELLOW (YELLOW)
[2017-09-12 04:05] LABS: TROPONIN I < 0.01 ng/mL
[2017-09-12 04:09] LABS: ALB/GLOB RATIO 1.4 (1.1-1.8); ALBUMIN 4.6 g/dL (3.0-4.8); ALT/SGPT 46 U/L (7-56); AST/SGOT 84 U/L (17-59); BLOOD UREA NITROGEN 11 mg/dL (7-21); CALCIUM 8.6 mg/dL (8.4-10.5); GFR AFRICAN-AMERICAN > 60; GFR NON-AFRICAN AMERICAN > 60
[2017-09-12 04:20] LABS: CK MB% 1.6 % (2.5-3.0); CK-MB 18.8 ng/mL (0.0-3.6)
[2017-09-12 04:48] LABS: URINE BACTERIA LARGE (NEG)
[2017-09-12 04:53] LABS: URINE WBC NEGATIVE /hpf (0-6)
[2017-09-12 06:07] VITALS: BP 128/75; PULSE 93; RESP 20; O2SAT 97
--- NOTE | 2017-09-12 09:19 | RAD ---
HISTORY: cp COMPARISON: 01/03/2017 FINDINGS: LUNGS: No active pulmonary disease. PLEURA: No significant pleural effusion identified, no pneumothorax apparent. CARDIOVASCULAR: Normal. OSSEOUS STRUCTURES: No significant abnormalities. VISUALIZED UPPER ABDOMEN: Normal. OTHER FINDINGS: None. IMPRESSION: No active disease.
--- NOTE | 2017-09-12 11:05 | CARD ---
APPROVED REPORT EKG Measurement Heart [id number] <Conclusion> Sinus tachycardia High Voltage. LVH?
== END 2017-09-12 07:23 | disposition home or self-care (01) ==
LOC: ED 00:31
DX: R07.9 Chest pain, unspecified (principal); F10.10 Alcohol abuse, uncomplicated; Y90.6 Blood alcohol level of 120-199 mg/100 ml; I10 Essential (primary) hypertension; E11.9 Type 2 diabetes mellitus without complications
CPT/HCPCS: 71045; 80053; 80320; 81001; 82550; 82553; 82948; 83615; 83735; 84484; 85025; 87086; 93005; 96361; 96374; 96375; 99284; C9113; J1885; J2405; J7040